=== PATIENT | female | born 1955 | race African-American/Black ===

== ENCOUNTER → 2017-07-24 14:12 | Outpatient (CLI) | payer OTHER, SELFPAY ==
[2017-07-24 14:44] LABS: Color, Urine Yellow (Yellow); Glucose, Dipstick Normal (Normal); Ketone-Dipstick Negative (Negative); Leukocyte Esterase-Dipstick 500 /ul (Negative); Mucous, Urine 0 SEEN /hpf (<or=2+); Nitrite-Dipstick Negative (Negative); Occult Blood-Urine 250 /ul (Negative); Protein-Dipstick 100 mg/dl (Negative); Specific Gravity, Urine 1.015 (1.002-1.030); Urine Bilirubin Dipstick Negative (Negative); Urine Clarity Sl. Cloudy (Clear); Urine Urobilinogen Normal (Normal)
[2017-07-24 14:51] LABS: Bacteria 1+ /hpf (None Seen); Red Blood Cells-Urine 25-50 SEEN /hpf (0-5); Squamous Epithelial Cells - UA 0-5 SEEN /hpf (5-10); White Blood Cells 25-50 SEEN /hpf (0-5)
== END ==
PROVIDERS: Family Provider Internal Medicine; PCP Internal Medicine; Visit Provider Internal Medicine
DX: N39.0 Urinary tract infection, site not specified (principal)
CPT/HCPCS: 81001

== ENCOUNTER 2017-08-01 16:26 | Emergency (ER) | payer OTHER, SELFPAY ==
[2017-08-01 16:27] VITALS: BP 162/81; PULSE 94; RESP 22; TEMP 36.6; O2SAT 94; BMI 32.7
--- NOTE | 2017-08-01 16:37 | CT_ITS ---
STUDY: CT ABDOMEN AND PELVIS WITH CONTRAST REASON FOR EXAM: Female, 62 years old. Abdominal pain RADIATION DOSAGE (If Supplied By Facility): CTDIvol = ( 12.21 ) mGy, DLP = ( 558.19 ) mGycm TECHNIQUE: Transaxial images were obtained from the dome of the diaphragm to the symphysis pubis without oral contrast. 15 ml of Gastrografin contrast was administered. Sagittal and coronal images were reconstructed. Individualized dose optimization techniques were used for this CT. COMPARISON: September 26, 2012 FINDINGS: The visualized lung bases are unremarkable. The visualized portions of the heart are within normal limits. Within segment 6 of the liver there is a persistent well-circumscribed low-attenuation focus that has not significantly changed since 2012. There are gallstones within the gallbladder. Normal spleen. Normal pancreas. There is stable symmetric enlargement of the adrenal glands suggesting adrenal hyperplasia. There is right-sided hydroureteronephrosis secondary to a 3.7 mm calculus within the distal right ureter. There is an additional nonobstructing right renal calculus. Normal left kidney. There is a small hiatal hernia. Normal small intestine. Normal colon. The appendix is visualized and appears normal. Normal abdominal aorta. Normal inferior vena cava. Normal retroperitoneum. Normal urinary bladder. Normal abdominal wall. Normal osseous structures. CT/Abdomen/Pel W ORAL Cont Only IMPRESSION: Right-sided hydroureteronephrosis secondary to a 3.7 mm calculus within the distal right ureter. Nonobstructing right renal calculus. Cholelithiasis. Small hiatal hernia. Electronically Signed: Trina Love MD at 20:07 EST Tel , Service support ,
--- NOTE | 2017-08-01 16:38 | ED.VISSUMM ---
- ER Visit Summary Date of Service: 08/01/17 Chief Complaint: Abdominal pain History of Present Illness: The patient is a 62 F presenting with diffuse abdominal pain that started yesterday morning. It is diffuse and she feels somewhat bloated. She is nauseated but has not vomited. Bowel movements have been normal. No fever. No chest pain or shortness of breath. No flulike symptoms. The pain was somewhat worse after she ate this afternoon. It does not radiate into her back and she has no flank pain. Physical Examination: Vitals are within normal limits. She is not in distress. Neck is supple. Heart tones are regular without murmur. Lungs are clear bilaterally. Abdomen is nontender and without peritoneal findings. Bowel sounds are normal. Skin looks normal. Test Results: CBC, BMP, hepatic panel, lipase as well as urinalysis were ordered. Care is being turned over to the oncoming physician. Emergency Department Course and Treatment: [] Treatment Plan: [] Disposition: [] Impression: [] This note was generated with [employer] dictation software. It may contain incorrect words, spelling, and punctuation that were not noted in review of the chart prior to signing <Hany Beth - Last Filed: 08/01/17 16:38> - ER Visit Summary She was signed out to me to follow-up on results. Patient had been treated with morphine and Zofran. Laboratory studies notable for white blood cell count 3.9 and blood in the urine. CT of the abdomen and pelvis shows right hydronephrosis with a 3.7 mm distal right ureteral calculus. On reevaluation patient rates her pain as 8 out of 10 however she is resting comfortably in no distress and states this is actually tolerable level of pain for her and she does not believe she needs admitted and would like to go home. She does have a history of kidney stones. She was given a prescription for Percocet and Flomax and referred to urology. She understands to return for new or worsening symptoms. Disposition: Discharge Impression: 1. Ureterolithiasis <Ivan Calderon - Last Filed: 08/01/17 20:31> ED Disposition <Hany Beth - Last Filed: 08/01/17 16:38> <Ivan Calderon - Last Filed: 08/01/17 20:31> - Plan for ED Patient: Chief Complaint: Abd Pain Referrals: Aarti Huang MD [Primary Care Provider] -
[2017-08-01] MEDS: 0.9% Normal Saline 1,000 ML 1000 ML IV (16:48)
[2017-08-01] MEDS: Ondansetron 4 MG/2 ML Vial IV (16:49)
[2017-08-01 16:59] LABS: Absolute Lymphocyte Count 1.81 X10^3/ul (0.83-4.51); Absolute Neutrophil Count 1.8 X10^3/uL (2.0-7.7); Basophil# 0.02 X10^3/uL; Basophil% 0.5 % (0-1); Eosinophil# 0.09 X10^3/uL; Eosinophils% 2.3 % (0-5); Hematocrit 41.5 % (37-47); Hemoglobin 13.5 g/dl (12.0-15.0); Lymphocyte # 1.81 X10^3/ul (4.0); Lymphocyte % 46.2 % (19-41); Mean Corp Hgb Conc 32.5 g/gl (32-36); Mean Corpuscular Hgb 30.6 pg (27.0-32.0); Mean Corpuscular Volume 94.1 fL (81-99); Mean Platelet Vol. 9.8 fl (6.2-12.0); Monocyte# 0.23 X10^3/uL; Monocyte% 5.9 % (0-10); Neutrophil # 1.77 X10^3/uL (2.7-7.7); Neutrophil % 45.1 % (47-70); Platelet Count 249 K/mm3 (150-450); RBC Distribution Width CV 13.9 % (11.6-14.6); RBC Distribution Width SD 47.5 fl (35.1-43.9); Red Blood Count 4.41 M/mm3 (4.2-5.4); White Blood Count 3.9 K/mm3 (4.4-11.0)
[2017-08-01 17:00] LABS: POSITIVE COUNT NO; POSITIVE DIFFERENTIAL NO; POSITIVE MORPHOLOGY NO
[2017-08-01 17:30] LABS: AST(SGOT) 16 U/L (15-37); Alanine Aminotransfer ALT/SGPT 24 U/L (13-56); Albumin, Serum 3.9 g/dL (3.2-5.0); Alkaline Phosphatase 73 U/L (45-117); Anion Gap 8 (5-15); BUN 14 mg/dL (7-18); BUN/Creat Ratio 15.2 RATIO (10-20); Bilirubin, Direct 0.15 mg/dL (0.00-0.30); Chloride 110 mmol/L (98-107); Creatinine, Serum 0.92 mg/dL (0.55-1.02); EST Glomerular Filtration Rate 65 mL/min (>60); Est Glom Filt Rate - Afr Amer 79 mL/min (>60); Estimated Creatinine Clearance 46.62 ml/min; Globulin 4.5 g/dL (2.2-4.2); Glucose 109 mg/dL (74-106); Lipase 185 U/L (73-393); Protein, Total 8.4 g/dL (6.4-8.2); Sodium Level 145 mmol/L (136-145)
[2017-08-01 17:43] LABS: Bacteria 0 SEEN /hpf (None Seen); Mucous, Urine 0 SEEN /hpf (<or=2+); White Blood Cells 0 SEEN /hpf (0-5)
[2017-08-01 17:45] LABS: Color, Urine Yellow (Yellow); Glucose, Dipstick Normal (Normal); Ketone-Dipstick Negative (Negative); Leukocyte Esterase-Dipstick Negative /ul (Negative); Nitrite-Dipstick Negative (Negative); Occult Blood-Urine 50 /ul (Negative); Protein-Dipstick Negative (Negative); Specific Gravity, Urine 1.015 (1.002-1.030); Urine Bilirubin Dipstick Negative (Negative); Urine Clarity Sl. Cloudy (Clear); Urine Urobilinogen Normal (Normal)
[2017-08-01 17:53] LABS: Amorphous Sediment 1+ PHOS; Red Blood Cells-Urine 0-5 SEEN /hpf (0-5); Squamous Epithelial Cells - UA 0-5 SEEN /hpf (5-10)
[2017-08-01 19:03] VITALS: BP 119/73; PULSE 70; O2SAT 98
--- NOTE | 2017-08-01 20:31 | ED.DEP ---
ED Disposition - Plan for ED Patient: Chief Complaint: Abd Pain Instructions: ED Stone Renal W Colic Prescriptions: Oxycodone HCl/Acetaminophen [Percocet 5/325] 1 tab PO Q6H PRN PRN 3 Days #12 tab PRN Reason: Pain Tamsulosin HCl [Flomax] 0.4 mg PO DAILY 14 Days cap Referrals: Aarti Huang MD [Primary Care Provider] - Leo Roper MD [STAFF PHYSICIAN] -
[2017-08-01 20:50] VITALS: PULSE 89; RESP 16; O2SAT 96
== END 2017-08-01 20:51 | disposition home or self-care (01) ==
PROVIDERS: Emergency Provider Emergency Medicine; Family Provider Internal Medicine; PCP Internal Medicine
DX: N20.1 Calculus of ureter (principal); I10 Essential (primary) hypertension; N13.30 Unspecified hydronephrosis; Z87.442 Personal history of urinary calculi
CPT/HCPCS: 74176; 80048; 80076; 81001; 83690; 85025; 87086; 87088; 99282; J7030; A4216; J2405

== ENCOUNTER → 2017-08-03 14:04 | Outpatient (CLI) | payer OTHER, SELFPAY ==
[2017-08-03 10:20] VITALS: BP 119/73; BMI 32.7
--- NOTE | 2017-08-03 14:30 | US_ITS ---
STUDY: ABDOMINAL ULTRASOUND - RIGHT UPPER QUADRANT REASON FOR VISIT: Female, 62 years old. Right upper quadrant pain. TECHNIQUE: Ultrasound evaluation of the right upper quadrant was performed with real-time and static maxwell-scale imaging. TECHNICAL QUALITY: Adequate. COMPARISON: Comparison is made with prior CT scan of the abdomen dated August 01, 2017. FINDINGS: Liver: The liver measures 12.2 cm. There is normal echogenicity of the liver. The bile ducts are within normal limits. There is hepatic color flow. The direction of portal flow is hepatopetal. There is a 1.2 cm x 1.2 cm x 1.2 cm cyst in the posterior right lobe of the liver. Gallbladder: Normal distended gallbladder. The gallbladder wall measures 3.0 mm. There is a negative sonographic Rodriguez's sign. There is no pericholecystic fluid. There are multiple echogenic structures within the gallbladder, consistent with multiple gallstones. Common Bile Duct (C.B.D.): The common bile duct measures 3.0 mm. Pancreas: Normal size of the head, body and tail of the pancreas. There is normal echogenicity of the pancreas. There is no demonstrated pancreatic mass or cyst. Right Kidney: Normal size of the right kidney. The right kidney measures 10.3 cm x 4.7 cm x 3.9 cm. Normal renal cortex. The right cortex measures 1.1 cm. There is no demonstrated renal mass or cyst. There is no right hydronephrosis. There is a 5 mm x 5 mm nonobstructive right intrarenal calculus. US/Abdomen Limited IMPRESSION: Multiple gallstones. Nonobstructive right intrarenal calculus. Small cyst in the right lobe of the liver. Electronically Signed: Harry Juárez MD at 15:50 EST Tel [phone], Service support ,
== END ==
PROVIDERS: Family Provider Internal Medicine; PCP Internal Medicine; Visit Provider Internal Medicine
DX: R10.11 Right upper quadrant pain (principal)
CPT/HCPCS: 76705

== ENCOUNTER → 2017-09-22 20:01 | Outpatient (CLI) | payer OTHER, SELFPAY | PROVIDERS: Family Provider Internal Medicine; PCP Internal Medicine; Visit Provider Internal Medicine | DX: G47.30 Sleep apnea, unspecified (principal); R06.83 Snoring; Z13.89 Encounter for screening for other disorder | CPT/HCPCS: 95811 ==

== ENCOUNTER 2018-01-28 14:25 | Emergency (ER) | payer MEDICARE, OTHER, SELFPAY ==
[2018-01-28 14:26] VITALS: BP 137/82; PULSE 80; RESP 18; TEMP 36.8; O2SAT 99; BMI 31.0
--- NOTE | 2018-01-28 14:44 | RAD_ITS ---
STUDY: X-RAY CHEST REASON FOR EXAM: Female, 62 years old. Left-sided chest pain. TECHNIQUE: Single AP portable view of the chest. COMPARISON: None. FINDINGS: The lungs are clear and expanded. There is no demonstrated pleural abnormality. Normal size heart. Normal mediastinum and chery. Normal visualized pulmonary arteries. There is atherosclerotic tortuosity of the aortic arch and descending thoracic aorta. Normal visualized thoracic spine. Normal visualized ribs, clavicles, and shoulders. There is no demonstrated abnormality of the visualized soft tissue structures of the upper abdomen. RAD/Chest 1 View (Portable) IMPRESSION: Normal x-ray examination of the chest. Electronically Signed: Harry Juárez MD at 15:05 EDT Tel [phone], Service support ,
--- NOTE | 2018-01-28 14:44 | EKG12_ITS ---
Test Reason : CP Blood Pressure : / mmHG Vent. Rate : 079 BPM Atrial Rate : 079 BPM P-R Int : 168 ms QRS Dur : 096 ms QT Int : 376 ms P-R-T Axes : 058 -29 052 degrees QTc Int : 431 ms Normal sinus rhythm Normal ECG Confirmed by JACQUELIN WEBB, TAMIA ([id number]), editor book BIANKA HARRELL ([id number]) on 02/01/2018 2:00:03 PM Referred By: MARYAM Confirmed By:TAMIA ROPER MD
--- NOTE | 2018-01-28 14:47 | ED.DCSUM_ITS ---
- ER Visit Summary Date of Service: 01/28/18 Chief Complaint: Chest pain History of Present Illness: The patient is a 62 F reports a 3 day history of intermittent left lower chest pain. She believes she might be having some gas bubbles causing pain. She states that initially was in the right upper quadrant but is now under the left breast. It is more noticeable at rest and she describes intermittent spasms. She states it would initially improve with antacids. She has not noted worsening of symptoms with exertion. She does not have shortness of breath. She does have a history of hypertension and high cholesterol. She denies personal cardiac history or significant cardiac workup in the past. She denies family history of cardiac disease. Physical Examination: Vital signs are unremarkable. Patient sitting upright in bed no acute distress. Heart is regular rate and rhythm. Lung sounds are clear. Abdomen is soft with mild epigastric tenderness. There is no guarding or rebound. Active bowel sounds noted throughout. Extremity examination was no calf tenderness or edema. There are strong distal pulses noted throughout. Test Results: EKG is sinus at 79 with no sign of acute ischemia. Chest x-ray is unremarkable. CBC was a white count 3.4. Chemistry studies normal. LFTs and lipase normal. Troponin is less than 0.015. Emergency Department Course and Treatment: Patient did receive aspirin here. On repeat evaluation she is resting comfortably. Symptoms certainly sound atypical for cardiac etiology to been ongoing for several days with normal EKG and troponin. I have recommended follow-up with her doctor for potential outpatient testing and patient states she has an appointment with her doctor tomorrow. Patient will be started on Pepcid to see if this improves her symptoms. Treatment Plan: [] Disposition: Discharge Impression: Atypical chest pain This note was generated with [employer] dictation software. It may contain incorrect words, spelling, and punctuation that were not noted in review of the chart prior to signing ED Disposition - Plan for ED Patient: Disposition: Home or Assisted Living Chief Complaint: Chest Pain Instructions: ED Chest Pain Atypical Unkn Cause Prescriptions: Famotidine [Pepcid] 20 mg PO BID #28 tablet Referrals: Aarti Huang MD [Primary Care Provider] - Keep Rikki appointment
[2018-01-28] MEDS: Aspirin 81 MG TAB.CHEW 324 MG PO (15:10)
[2018-01-28] MEDS: 0.9% Normal Saline 1,000 ML 150 ML IV (15:10)
[2018-01-28 15:28] LABS: Absolute Lymphocyte Count 1.75 X10^3/ul (0.83-4.51); Absolute Neutrophil Count 1.3 X10^3/uL (2.0-7.7); Basophil# 0.03 X10^3/uL; Basophil% 0.9 % (0-1); Eosinophil# 0.07 X10^3/uL; Eosinophils% 2.1 % (0-5); Hematocrit 40.1 % (37-47); Hemoglobin 13.1 g/dl (12.0-15.0); Lymphocyte # 1.75 X10^3/ul (4.0); Lymphocyte % 51.6 % (19-41); Mean Corp Hgb Conc 32.7 g/gl (32-36); Mean Corpuscular Hgb 30.8 pg (27.0-32.0); Mean Corpuscular Volume 94.1 fL (81-99); Mean Platelet Vol. 9.8 fl (6.2-12.0); Monocyte% 5.9 % (0-10); Neutrophil # 1.34 X10^3/uL (2.7-7.7); Neutrophil % 39.5 % (47-70); POSITIVE COUNT NO; POSITIVE DIFFERENTIAL NO; Platelet Count 252 K/mm3 (150-450); RBC Distribution Width CV 13.3 % (11.6-14.6); RBC Distribution Width SD 44.5 fl (35.1-43.9); Red Blood Count 4.26 M/mm3 (4.2-5.4); White Blood Count 3.4 K/mm3 (4.4-11.0)
[2018-01-28 15:29] LABS: POSITIVE MORPHOLOGY NO
[2018-01-28 15:41] VITALS: PULSE 69; RESP 17; O2SAT 98
[2018-01-28 15:42] LABS: AST(SGOT) 20 U/L (15-37); Alanine Aminotransfer ALT/SGPT 22 U/L (13-56); Albumin, Serum 3.7 g/dL (3.2-5.0); Alkaline Phosphatase 68 U/L (45-117); Anion Gap 7 (5-15); BUN 11 mg/dL (7-18); BUN/Creat Ratio 13.6 RATIO (10-20); Bilirubin, Direct 0.12 mg/dL (0.00-0.30); Calcium,Total 8.8 mg/dL (8.5-10.1); Chloride 106 mmol/L (98-107); Creatinine, Serum 0.81 mg/dL (0.55-1.02); EST Glomerular Filtration Rate 76 mL/min (>60); Est Glom Filt Rate - Afr Amer 92 mL/min (>60); Estimated Creatinine Clearance 55.49 ml/min; Globulin 4.5 g/dL (2.2-4.2); Glucose 90 mg/dL (74-106); Lipase 118 U/L (73-393); Potassium 3.9 mmol/L (3.5-5.1); Protein, Total 8.2 g/dL (6.4-8.2); Sodium Level 140 mmol/L (136-145)
--- NOTE | 2018-01-28 16:07 | ED.DEP ---
ED Disposition - Plan for ED Patient: Disposition: Home or Assisted Living Chief Complaint: Chest Pain Instructions: ED Chest Pain Atypical Unkn Cause Prescriptions: Famotidine [Pepcid] 20 mg PO BID #28 tablet Referrals: Aarti Huang MD [Primary Care Provider] - Keep Rikki appointment
[2018-01-28 16:31] VITALS: PULSE 65; RESP 19; O2SAT 97
== END 2018-01-28 16:32 | disposition home or self-care (01) ==
PROVIDERS: Emergency Provider Emergency Medicine; Family Provider Internal Medicine; PCP Internal Medicine
DX: R07.89 Other chest pain (principal); I10 Essential (primary) hypertension; E78.00 Pure hypercholesterolemia, unspecified; Z87.891 Personal history of nicotine dependence
CPT/HCPCS: 71045; 80048; 80076; 83690; 84484; 85025; 93005; 99285; J7030

== ENCOUNTER → 2018-01-29 11:58 | Outpatient (CLI) | payer MEDICARE, OTHER, SELFPAY ==
[2018-01-29 14:32] LABS: Cholesterol 156 mg/dL (200); High Density Lipoprotein 69 mg/dL; Triglycerides 52 mg/dL; Very Low Density Lipoprotein 10 mg/dL (5-40)
== END ==
PROVIDERS: Family Provider Internal Medicine; PCP Internal Medicine; Visit Provider Internal Medicine
DX: E78.5 Hyperlipidemia, unspecified (principal)
CPT/HCPCS: 36415; 80061

== ENCOUNTER → 2018-08-03 14:11 | Outpatient (CLI) | payer MEDICARE, SELFPAY ==
[2018-08-03 13:08] VITALS: BMI 33.0
[2018-08-03 15:51] LABS: Anion Gap 8 (5-15); BUN 14 mg/dL (7-18); BUN/Creat Ratio 16.9 RATIO (10-20); Calcium,Total 8.9 mg/dL (8.5-10.1); Chloride 108 mmol/L (98-107); Creatinine, Serum 0.83 mg/dL (0.55-1.02); EST Glomerular Filtration Rate 74 mL/min (>60); Est Glom Filt Rate - Afr Amer 89 mL/min (>60); Glucose 97 mg/dL (74-106); Potassium 3.6 mmol/L (3.5-5.1); Sodium Level 144 mmol/L (136-145)
== END ==
PROVIDERS: Family Provider Internal Medicine; PCP Internal Medicine; Referring Provider Internal Medicine; Visit Provider Internal Medicine
DX: I10 Essential (primary) hypertension (principal)
CPT/HCPCS: 36415; 80048

== ENCOUNTER 2019-01-16 12:32 | Emergency (ER) | payer MEDICARE, OTHER, SELFPAY ==
[2018-11-02 14:30] VITALS: BMI 33.0
[2019-01-16 12:33] VITALS: BP 113/75; PULSE 78; RESP 16; TEMP 36.3; O2SAT 97; BMI 31.7
--- NOTE | 2019-01-16 12:50 | CT_ITS ---
STUDY: CT ABDOMEN AND PELVIS WITHOUT CONTRAST REASON FOR EXAM: Female, 63 years old. Right-sided abdominal pain RADIATION DOSAGE (If Supplied By Facility): CTDIvol = ( 9.34 ) mGy, DLP = ( 431.51 ) mGycm TECHNIQUE: Transaxial images were obtained from the dome of the diaphragm to the symphysis pubis without oral contrast, and without intravenous contrast. Sagittal and coronal images were reconstructed. Individualized dose optimization techniques were used for this CT. COMPARISON: 08/01/2017 FINDINGS: The visualized lung bases are unremarkable. The visualized portions of the heart are within normal limits. There is a simple cyst in the posterior right hepatic lobe. There are multiple gallstones. Normal spleen. Normal pancreas. Normal bilateral adrenal glands. Nonobstructing punctate calculus in the inferior right kidney is seen on image 63 measuring 3 mm. No hydronephrosis. There is a small hiatal hernia. Normal small intestine. Moderate fecal retention of the proximal colon. No colon wall thickening. The appendix is visualized and appears normal. Normal abdominal aorta. Normal inferior vena cava. Normal retroperitoneum. Normal urinary bladder. Normal abdominal wall. Normal osseous structures. CT/Abdomen/Pelvis without Cont IMPRESSION: 1. No hydronephrosis or ureteric calculi. 2. Nonobstructing right renal calculus. 3. Cholelithiasis. Electronically Signed: Osvaldo Carter MD at 14:52 EDT , Service support ,
--- NOTE | 2019-01-16 12:51 | ED.VIS.GEN ---
History of Present Illness Chief Complaint: Flank Pain Detail of Chief Complaint: Right flank pain Informant: Patient Onset: Yesterday Context: Gradual Onset Timing: Waxes and wanes Current Severity: Moderate Maximum Severity: Moderate Narrative: Patient presents with right flank pain that started yesterday. After the pain started she also slipped while cleaning the shower and thought maybe she was having some muscle spasm. She does have a history of kidney stones and is now more concerned that she has another stone. Pain wraps around the lower right rib border. She denies dysuria but states her urine does appear slightly more dark than normal. She has had multiple kidney stones in the past and was been able to pass them without surgery. - Past Medical History (1) Hyperlipemia Status: Chronic (2) Hypertension Status: Chronic (3) Kidney stones Status: Chronic (4) Sleep apnea Status: Chronic Past Medical History - Allergies and Home Meds Allergies/Adverse Reactions: Allergies lactose Adverse Reaction (Verified 01/16/19 12:33) Nausea/Vom/Diarrhea Primary Care Physician: Aarti Huang MD [Primary Care Provider] - Prior records reviewed: Yes Past Medical History: - - Reviewed Lives: With Family Smoking Status: Former smoker Review of Systems General: Denies: Chills, Fever Eyes: Denies: Visual changes - bilaterally ENT: Denies: Bilateral ear pain Cardiovascular: Denies: Chest pain, Palpitations Respiratory: Denies: Dyspnea, Cough Gastrointestinal: Reports: Abdominal pain - Right upper quadrant. Denies: Nausea, Vomiting Genitourinary: Denies: Dysuria, Hematuria, Frequency Musculoskeletal: Reports: Back pain - Right flank pain Skin: Denies: Rash Endocrine: Denies: Polyuria, Polydipsia Hematologic: Denies: Easy bleeding Allergy: Denies: Uticaria Physical Exam Vital Signs/Narrative: Vital Signs Temp Pulse Resp BP Pulse Ox 01/16/19 12:33 97.3 F L 78 16 113/75 97 Inital Vital Signs reviewed: Yes General: Well nourished, Well developed Head: Normocephalic Eyes: EOMI ENT: Moist mucous membranes Cardiovascular: Regular rate, Regular rhythm Respiratory: No distress, CTA bilaterally Abdomen: Soft, Tender - Right upper quadrant tenderness to palpation. Negative for: Guarding, Rebound tenderness Back: CVA tenderness - CVA tenderness Extremities: Nontender Skin: Normal color Neurological: Alert, Oriented x3 Psychological: Normal affect Diagnostic/Tx/Re-eval Impressions Abdomen/Pelvis CT 01/16/19 12:50 IMPRESSION: 1. No hydronephrosis or ureteric calculi. 2. Nonobstructing right renal calculus. 3. Cholelithiasis. Electronically Signed: Osvaldo Carter MD at 14:52 EDT , Service support , 01/16/19 12:50 Abdomen/Pelvis without Cont [CT] Stat Laboratory Results 01/16/19 01/16/19 01/16/19 12:55 12:55 15:00 WBC 3.7 L RBC 4.11 L Hgb 12.7 Hct 38.3 MCV 93.2 MCH 30.9 MCHC 33.2 RDW Std Deviation 45.5 H RDW Coeff of Samy 13.4 Plt Count 219 MPV 10.0 Immature Gran % (Auto) 0.000 Neut % (Auto) 44.2 L Lymph % (Auto) 43.4 H [place] % (Auto) 9.7 Eos % (Auto) 1.6 Baso % (Auto) 1.1 H Absolute Neuts (auto) 1.6 L Absolute Lymphs (auto) 1.61 Absolute Nucleated RBC 0.00 Nucleated RBC % 0 Sodium 139 Potassium 4.2 Chloride 110 H Carbon Dioxide 27.0 Anion Gap 2 L BUN 14 Creatinine 0.85 Estim Creat Clear Calc 52.19 Est GFR (MDRD) Af Amer 86 Est GFR (MDRD) Non-Af 71 BUN/Creatinine Ratio 16.4 Glucose 94 Calcium 8.9 Total Bilirubin 0.40 Direct Bilirubin 0.08 AST 22 ALT 20 Alkaline Phosphatase 64 Total Protein 7.6 Albumin 3.5 Globulin 4.1 Lipase 83 Urine Color Straw Urine Clarity Clear Urine pH 6.5 Ur Specific [place] 1.010 Urine Protein Negative Urine Glucose (UA) Normal Urine Ketones Negative Urine Occult Blood Negative Urine Nitrite Negative Urine Bilirubin Negative Urine Urobilinogen Normal Ur Leukocyte Esterase Negative Urine RBC 0 SEEN Urine WBC 0 SEEN Ur Squamous Epith Cells 0-5 SEEN Urine Bacteria 0 SEEN Urine Mucus 0 SEEN - Medical Decision Making Patient was given morphine, Zofran, and 15 mg of Toradol along with IV fluids. On repeat evaluation she is resting comfortably and states her pain is significantly improved. Test results are discussed with her. I did advise her that she has gallstones, but no signs of acute cholecystitis. She did slip and nearly fall straining her back a few days ago and this may be the cause of her current symptoms. She will use Tylenol or ibuprofen at home for pain. I will write her for a few [place] for breakthrough pain if needed. She is to return for worsening symptoms or concerns. ED Disposition - Plan for ED Patient: Disposition: Home or Assisted Living Diagnosis: Right flank pain Instructions: FLANK PAIN, Uncertain Cause Prescriptions: Hydrocodone Bitart/Apap 5-325 [[place] 5MG-325MG] 1 tablet PO Q6H PRN PRN 3 Days #10 tablet PRN Reason: Pain Referrals: Aarti Huang MD [Primary Care Provider] - 1 Week if not improving
[2019-01-16] MEDS: Morphine 4 MG/ML Syringe IV (13:03)
[2019-01-16] MEDS: 0.9% Normal Saline 1,000 ML 150 ML IV (13:03)
[2019-01-16] MEDS: Ketorolac 15 MG/ML Vial IV (13:03)
[2019-01-16] MEDS: Ondansetron 4 MG/2 ML Vial IV (13:03)
[2019-01-16 13:19] LABS: Absolute Lymphocyte Count 1.61 X10^3/uL (0.83-4.51); Absolute Neutrophil Count 1.6 X10^3/uL (2.0-7.7); Basophil# 0.04 X10^3/uL; Basophil% 1.1 % (0-1); Eosinophil# 0.06 X10^3/uL; Eosinophils% 1.6 % (0-5); Hematocrit 38.3 % (37-47); Hemoglobin 12.7 g/dL (12.0-15.0); Lymphocyte # 1.61 X10^3/ul (4.0); Lymphocyte % 43.4 % (19-41); Mean Corp Hgb Conc 33.2 g/dL (32-36); Mean Corpuscular Hgb 30.9 pg (27.0-32.0); Mean Corpuscular Volume 93.2 fL (81-99); Monocyte# 0.36 X10^3/uL; Monocyte% 9.7 % (0-10); NRBC Flagged by Analyzer 0 % (0-5); Neutrophil # 1.64 X10^3/uL (2.7-7.7); Neutrophil % 44.2 % (47-70); Platelet Count 219 K/mm3 (150-450); RBC Distribution Width CV 13.4 % (11.6-14.6); RBC Distribution Width SD 45.5 fl (35.1-43.9); Red Blood Count 4.11 M/mm3 (4.2-5.4); White Blood Count 3.7 K/mm3 (4.4-11.0)
[2019-01-16 13:34] LABS: AST(SGOT) 22 U/L (15-37); Alanine Aminotransfer ALT/SGPT 20 U/L (13-56); Albumin, Serum 3.5 g/dL (3.2-5.0); Alkaline Phosphatase 64 U/L (45-117); Anion Gap 2 (5-15); BUN 14 mg/dL (7-18); BUN/Creat Ratio 16.4 RATIO (10-20); Bilirubin, Direct 0.08 mg/dL (0.00-0.30); Calcium,Total 8.9 mg/dL (8.5-10.1); Chloride 110 mmol/L (98-107); Creatinine, Serum 0.85 mg/dL (0.55-1.02); EST Glomerular Filtration Rate 71 mL/min (>60); Est Glom Filt Rate - Afr Amer 86 mL/min (>60); Estimated Creatinine Clearance 52.19 ml/min; Globulin 4.1 g/dL (2.2-4.2); Glucose 94 mg/dL (74-106); Lipase 83 U/L (73-393); Potassium 4.2 mmol/L (3.5-5.1); Protein, Total 7.6 g/dL (6.4-8.2); Sodium Level 139 mmol/L (136-145)
[2019-01-16 15:05] VITALS: BP 114/66; PULSE 66; RESP 17; O2SAT 96
[2019-01-16 15:09] LABS: Bacteria 0 SEEN /hpf (None Seen); Mucous, Urine 0 SEEN /hpf (<or=2+); Red Blood Cells-Urine 0 SEEN /hpf (0-5); White Blood Cells 0 SEEN /hpf (0-5)
[2019-01-16 15:27] LABS: Color, Urine Straw (Yellow); Glucose, Dipstick Normal (Normal); Ketone-Dipstick Negative (Negative); Leukocyte Esterase-Dipstick Negative /ul (Negative); Nitrite-Dipstick Negative (Negative); Occult Blood-Urine Negative /ul (Negative); Protein-Dipstick Negative (Negative); Urine Bilirubin Dipstick Negative (Negative); Urine Clarity Clear (Clear); Urine Urobilinogen Normal (Normal); Urine pH 6.5 (5.0 - 8.0)
[2019-01-16 15:48] LABS: Squamous Epithelial Cells - UA 0-5 SEEN /hpf (5-10)
== END 2019-01-16 15:58 | disposition home or self-care (01) ==
PROVIDERS: Emergency Provider Emergency Medicine; Family Provider Internal Medicine; PCP Internal Medicine
DX: R10.9 Unspecified abdominal pain (principal); K80.20 Calculus of gallbladder without cholecystitis without obstruction; N20.0 Calculus of kidney; Z87.891 Personal history of nicotine dependence; I10 Essential (primary) hypertension; E78.5 Hyperlipidemia, unspecified; G47.30 Sleep apnea, unspecified; Z87.442 Personal history of urinary calculi
CPT/HCPCS: 74176; 80048; 80076; 81001; 83690; 85025; 96361; 96374; 96375; 99284; J7030; A4216; J2405

== ENCOUNTER → 2019-02-15 11:57 | Outpatient (CLI) | payer MEDICARE, OTHER, SELFPAY ==
[2019-02-15 11:30] VITALS: BMI 32.0
[2019-02-15 13:00] LABS: Cholesterol 148 mg/dL (200); High Density Lipoprotein 72 mg/dL; Triglycerides 79 mg/dL; Very Low Density Lipoprotein 16 mg/dL (5-40)
== END ==
PROVIDERS: Family Provider Internal Medicine; PCP Internal Medicine; Visit Provider Internal Medicine
DX: E78.5 Hyperlipidemia, unspecified (principal); I10 Essential (primary) hypertension
CPT/HCPCS: 36415; 80061

== ENCOUNTER 2019-02-19 22:29 | Emergency (ER) | payer MEDICARE, OTHER, SELFPAY ==
[2019-02-15 11:30] VITALS: BMI 32.0
[2019-02-19 22:30] VITALS: BP 129/74; PULSE 99; RESP 16; TEMP 36.2; O2SAT 98; BMI 33.5
[2019-02-19 23:02] LABS: Bacteria 0 SEEN /hpf (None Seen); Mucous, Urine 0 SEEN /hpf (<or=2+)
[2019-02-19 23:03] LABS: Color, Urine Straw (Yellow); Glucose, Dipstick Normal (Normal); Ketone-Dipstick Negative (Negative); Leukocyte Esterase-Dipstick 500 /ul (Negative); Nitrite-Dipstick Negative (Negative); Occult Blood-Urine 250 /ul (Negative); Protein-Dipstick Negative (Negative); Specific Gravity, Urine 1.005 (1.002-1.030); Urine Bilirubin Dipstick Negative (Negative); Urine Clarity Clear (Clear); Urine Urobilinogen Normal (Normal)
[2019-02-19 23:09] LABS: Amorphous Sediment 1+ PHOS; Red Blood Cells-Urine 5-10 SEEN /hpf (0-5); Squamous Epithelial Cells - UA 0-5 SEEN /hpf (5-10); White Blood Cells 10-25 SEEN /hpf (0-5)
--- NOTE | 2019-02-19 23:15 | ED.DCSUM_ITS ---
- ER Visit Summary Date of Service: 02/19/19 Chief Complaint: Lower abdominal pain History of Present Illness: The patient is a 64 F who presents with lower abdominal pain and pressure that began yesterday. Patient states it feels like there is pressure over her lower abdomen. Patient admits to some urinary frequency and dysuria. Patient admits to some nausea but denies any vomiting. Patient states pain does radiate into her back. Patient states she had a CT scan done about a month ago that showed kidney stone. Patient is unsure if it was in the kidney or the ureter. Patient thinks she may have passed the stone. Patient denies any fevers or chills. Patient denies any chest pain or shortness of breath. Physical Examination: Vital signs are stable. Patient is afebrile. Patient is in no acute distress. Oral mucosa is pink and moist. Neck is supple. Trachea is midline. There is no JVD noted. Heart was regular rate and rhythm. Lungs are clear and equal bilaterally. Abdomen is soft. Bowel sounds are normal. There is some mild lower abdominal tenderness. There is no rebound or guarding noted. Cranial nerves II through XII are intact. There are no focal motor or sensory deficits noted. Test Results: Urinalysis shows leukocyte esterase of 500 with 10-25 white blood cells. There is occult blood of 250 with 5-10 red blood cells. CBC and basic metabolic profile were within normal limits. Emergency Department Course and Treatment: CT scan from 01/16/2019 was reviewed. There was a stone in the right kidney but there is no obstruction. Urine culture was sent. Patient was started on Bactrim. Patient was instructed to drink plenty of fluids. Patient was instructed to follow-up with her primary care physician in 5 to 7 days. Patient understood and was agreeable with the plan. All questions were answered. Disposition: Discharge home Impression: 1. Urinary tract infection This note was generated with [employer] dictation software. It may contain incorrect words, spelling, and punctuation that were not noted in review of the chart prior to signing ED Disposition - Plan for ED Patient: Disposition: Home or Assisted Living Diagnosis: Urinary tract infection Instructions: Bladder Infection, Female (Adult) Prescriptions: Smz/Tmp Ds [Bactrim Ds] 1 tab PO BID #6 tab Prescription Printed Referrals: Aarti Huang MD [Primary Care Provider] - 5-7 Days
[2019-02-19 23:34] LABS: Absolute Lymphocyte Count 1.89 X10^3/uL (0.83-4.51); Absolute Neutrophil Count 4.3 X10^3/uL (2.0-7.7); Basophil# 0.04 X10^3/uL; Basophil% 0.6 % (0-1); Eosinophils% 2.8 % (0-5); Hematocrit 38.4 % (37-47); Hemoglobin 12.5 g/dL (12.0-15.0); Lymphocyte # 1.89 X10^3/ul (4.0); Lymphocyte % 26.8 % (19-41); Mean Corp Hgb Conc 32.6 g/dL (32-36); Mean Corpuscular Hgb 30.3 pg (27.0-32.0); Mean Platelet Vol. 10.1 fl (6.2-12.0); Monocyte# 0.59 X10^3/uL; Monocyte% 8.4 % (0-10); NRBC Flagged by Analyzer 0 % (0-5); Neutrophil # 4.31 X10^3/uL (2.7-7.7); Neutrophil % 61.3 % (47-70); Platelet Count 212 K/mm3 (150-450); RBC Distribution Width CV 13.2 % (11.6-14.6); RBC Distribution Width SD 44.8 fl (35.1-43.9); Red Blood Count 4.13 M/mm3 (4.2-5.4)
[2019-02-19 23:44] LABS: Anion Gap 6 (5-15); BUN 7 mg/dL (7-18); BUN/Creat Ratio 8.7 RATIO (10-20); Chloride 108 mmol/L (98-107); EST Glomerular Filtration Rate 76 mL/min (>60); Est Glom Filt Rate - Afr Amer 92 mL/min (>60); Glucose 110 mg/dL (74-106); Potassium 3.8 mmol/L (3.5-5.1); Sodium Level 142 mmol/L (136-145)
[2019-02-20] MEDS: Smz/Tmp Ds Tablet 1 TABLET PO (00:30)
[2019-02-20 00:33] VITALS: RESP 16
== END 2019-02-20 00:33 | disposition home or self-care (01) ==
PROVIDERS: Emergency Medicine; Emergency Provider Emergency Medicine; Family Provider Internal Medicine; PCP Internal Medicine
DX: N39.0 Urinary tract infection, site not specified (principal); I10 Essential (primary) hypertension; E78.00 Pure hypercholesterolemia, unspecified; Z87.442 Personal history of urinary calculi
CPT/HCPCS: 80048; 81001; 85025; 87086; 87088; 87186; 99284; A4216

== ENCOUNTER → 2019-03-02 13:18 | Outpatient (CLI) | payer MEDICARE, OTHER, SELFPAY ==
[2019-02-19 22:30] VITALS: BMI 33.5
--- NOTE | 2019-03-02 13:22 | EKG12_ITS ---
Test Reason : HYPERTENSION Blood Pressure : / mmHG Vent. Rate : 076 BPM Atrial Rate : 076 BPM P-R Int : 178 ms QRS Dur : 092 ms QT Int : 368 ms P-R-T Axes : 062 -17 049 degrees QTc Int : 414 ms Normal sinus rhythm Normal ECG Confirmed by JULISA SAHU ([id number]), web content editor VIVIENNE NARAYANAN ([id number]) on 03/03/2019 1:47:36 PM Referred By: Aarti Huang Confirmed By:JULISA SAHU
== END ==
PROVIDERS: Family Provider Internal Medicine; PCP Internal Medicine; Referring Provider Internal Medicine; Visit Provider Internal Medicine
DX: I10 Essential (primary) hypertension (principal)
CPT/HCPCS: 93005

== ENCOUNTER 2019-03-15 05:45 | Day surgery (SDC) | payer MEDICARE, OTHER, SELFPAY ==
[2019-03-07 14:49] VITALS: BMI 33.5
[2019-03-15] VITALS (7 sets, daily range): BP systolic 97–113; BP diastolic 62–76; PULSE 59–82; RESP 16–18; TEMP 36.1–36.4; O2SAT 97–100; BMI 32.1
--- NOTE | 2019-03-15 06:06 | HP.PCM_ITS ---
Problem List (1) Screening for intestinal cancer Status: Acute History and Physical Date of Admission: 03/15/19 MR#:[id number] Name: JULIA MIMS Rep #: [id number] : 1955 Provider: Garry Chawla MD Age/Sex: 64/F Location: [facility] Status: Signed Intake Vital Signs 03/07/19 Body Mass Index (BMI) 33.5 03/07/19 Height 5 ft 1 in 03/07/19 Weight: 172 lb 03/07/19 Body Mass Index (BMI) 32.5 03/07/19 Blood Pressure 116/71 03/07/19 Blood Pressure Location Rt brachial 03/07/19 Respiratory Rate 16 Intake Visit Reasons: Gallstones CT [facility] 01/16/19 Chief Complaint: FU - Seen ER yesterday - 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 Is patient in pain?: No Allergies lactose Adverse Reaction (Verified 03/07/19 14:49) Nausea/Vom/Diarrhea Medications multivitamin capsule 1 cap PO DAILY 05/07/18 [History Confirmed 03/07/19] omega-3 fatty acids 1,000 mg capsule 1,000 mg PO QDAY #90 cap 07/14/18 [Rx Confirmed 03/07/19] rosuvastatin 20 mg tablet 20 mg PO DAILY #90 tab 07/14/18 [Rx Confirmed 03/07/19] ascorbate calcium (vitamin C) 500 mg tablet 500 mg PO DAILY 11/02/18 [History Confirmed 03/07/19] cholecalciferol (vitamin D3) 1,000 unit capsule 1,000 unit PO DAILY 11/02/18 [History Confirmed 03/07/19] amlodipine 10 mg-benazepril 40 mg capsule 1 cap PO QDAY #90 cap 11/08/18 [Rx Confirmed 03/07/19] hydrocodone 5 mg-acetaminophen 325 mg tablet 1 tab PO Q6H PRN 02/15/19 [History Confirmed 03/07/19] PFSH Medical History Sleep apnea (Chronic) Emphysema lung (Chronic) Plantar fasciitis (Acute) Kidney stones (Chronic) Hyperlipemia (Chronic) Hypertension (Chronic) Surgical History History of salpingectomy (Acute) History of laparoscopy (Acute) Family History Mother Asthma Arthritis Father Asthma Social History (Updated 03/07/19 @ 17:22 by Garry Chawla MD) Smoking Status: Never smoker how long ago did patient quit smokin, 1p/day second hand exposure: Yes alcohol intake: never what type of physical activity do you participate in: aerobics, weight training frequency: daily HPI HPI HPI: JULIA MIMS, is a 64 F who presents to the office today for HPI HPI Surgical H&P: Yes HPI: JULIA MIMS, is a 64 F who presents to the office today for surgical consultation regarding right upper quadrant pain and gallstones and kidney stones. The patient is referred by Dr. Aarti Huang and a written copy of my surgical consult will be returned to her. The patient is currently 64. She states that perhaps as long as 5 years ago she was diagnosed with gallstones. It was felt that they likely were asymptomatic at that time. The patient describes at that time she also had kidney stones. She has had some ongoing intermittent hematuria. A month ago she had right up per quadrant and right mid abdominal pain. She did have some streaky amount of blood in her's urine but that resolved. She was seen at the [facility] emergency room on January 16, 2019. A CT scan of the abdomen and pelvis was obtained. This demonstrated multiple gallstones seen. There was a nonobstructing calculus of the inferior right kidney. No hydronephrosis. A small hiatal hernia was noted. At that time it was suggested that her pain was more in the lower abdomen. She denies fever or chills. She claims that she occasionally has sweats. As of February 19, 2019 her white blood cell count was 7000 with a hemoglobin of 12.5 and hematocrit of 38.4 with a platelet count of 212,000 and a normal differential. BUN was 7 and creatinine 0.8. The patient has carried some anxiety regarding surgical intervention. Although her has had 3 colonoscopies she herself is never had a single colonoscopy. She is not aware of any family history in her blood line of colon polyps or colon cancer. Her father however had hypertension and asthma. She has not noticed any bright red blood per rectum or melena. She points to the right subcostal area right flank area and right mid abdomen is a source of the discomfort. She does state that this is increased with fatty food intake. ROS General General: Yes fatigue; no weight change, appetite, colon cancer, breast cancer or weakness HEENT HEENT: No difficulty swallowing, eye injury, eye surgery, swollen glands or hoarseness Endo Endocrine: No thyroid disease, diabetes mellitus, thyroid cancer, Hair loss, heat intolerance or cold intolerance Skin Skin: No rash or changing moles Breast Breast: No left breast lump, right breast lump, nipple discharge, breast pain, abnormal mammogram, abnormal US or breast enlargement Musc Musculoskeletal: No back problems, arthritis, rheumatoid arthritis, gout or joint pain Cardio Cardiovascular: Yes high blood pressure; no murmur, pacemaker, heart disease, atrial fibrillation, heart attack, heart stent, palpitations, shortness of breat with exertion or chest pain Psych Psychiatric: No depression, anxiety or hearing voices Resp Respiratory: No shortness of breath, Yes sleep apnea, No cough, No COPD, No asthma, Yes emphysema, No wheezing Gastro Gastrointestinal: Yes abdominal pain, Yes nausea or vomiting, No diarrhea, Yes constipation, No blood in stool, No acid reflux, No hemorrhoids, No ulcers, Yes gallbladder problem, No black,tarry stools Dashawn Hematologic: No blood thinners, No blood disorders, No bleeding, No anemia, No blood clots Neuro Neurologic: No system reviewed and no additional complaints, except as docu, No as per HPI, No abnormal walking, No abnormal hearing, No abnormal movements, No abnormal speech, No behavioral changes, No burning sensations, No confusion, No seizure-like activity, No unsteadiness, No dizziness, No localized weakness, No frequent falls, No headache(s), No lack of coordination, No loss of vision, No memory loss, No numbness, No other visual disturbances, No radiating pain, No restless legs, No sensory deficit, No fainting, No tingling, No tremor(s), No weakness, No other Exam Const General: cooperative, comfortable, no acute distress, anxious Nutritional Appearance: overweight Orientation: alert, awake, oriented x3 HENMT Head: normal to inspection Eyes General: appearance normal, both eyes and all related structures Chest Breast Palpation: No nipple discharge Resp Effort & Inspection: normal respiratory effort Auscultation: clear to auscultation bilaterally Cardio Rate: regular rate Rhythm: regular rhythm Heart Sounds: no murmurs GI Palpation: soft, no hepatosplenomegaly Auscultation: normal bowel sounds Other: Mild tenderness right upper quadrant but similar mild tenderness left upper quadrant. No focal masses. No rebound or guarding. Normal bowel sounds Hypertrophic infraumbilical midline incision related to previous gynecologic surgery for tubal pregnancies x2 Musc Cervical Spine: normal cervical lordosis Skin Lesions: no lesions Neuro Cognition: normal cognition Extrem General: no calf tenderness bilaterally Psych Affect: normal affect Assessment & Plan Problems 1. Calculus of gallbladder with chronic cholecystitis without obstruction K80.10 2. Screening for intestinal cancer Z12.10 Plan At age 64 the patient has never had a screening colonoscopy yet she is having abdominal pain. I recommend to her a screening colonoscopy with possible biopsy or polypectomy as indicated. She is aware of the technique, benefit, risks, alternatives. This would be performed with monitored anesthesia care. And additionally I recommended the patient a laparoscopic cholecystectomy with selective cholangiography. I believe that is very difficult to decipher the potential differences between her right flank pain with known kidney stones and known gallstones. She seems to have a GI component with post prandial discomfort. With her present I have discussed technique, benefit, risks, alternatives. She has a infraumbilical midline incision. Consideration for possible Ricks technique will be utilized. She has had an opportunity to ask and have questions answered. She will schedule and proceed at her discretion. I very much appreciate the kind opportunity of assisting with her surgical care CC: Dr.Efewongbe Reina Chawla M.D., F.A.C.S. Coding Level of Care Code 09119 Diagnoses Calculus of gallbladder with chronic cholecystitis without obstruction K80.10 ??Cholelithiasis location: gallbladder ??Biliary obstruction: without biliary obstruction Screening for intestinal cancer Z12.10 03/07/19 1722 <Electronically signed by Garry vizcarra MD> Date _ Garry Chawla MD Cosigner Signature: Date (if applicable) CC: Aarti Huang MD ~ I have re-examined the patient. There are no clinical changes since date of exam.
[2019-03-15] MEDS: Lactated Ringers 1,000 ML 75 ML IV (06:17)
--- NOTE | 2019-03-15 07:00 | COLBX_PTH ---
PATIENT: JULIA MIMS LOC: EN U#:[id number] AGE/SX: 64/F ROOM: RE03/15/[address]: Dr. Garry Chawla MD : 1955 BED: DIS: 03/15/2019 SPEC #: [id number] RECD: 03/15/19 10:50 STATUS: SHILOH AFSHAN #: [id number] VINCE: 03/15/19 07:[address]: Garry Chawla DEPT: SURGICAL PATHOLOGY RECD BY: Dariusz Wiggins ENTERED: 03/15/19 11:59 SP TYPE: COLON BX AMBROSIO DR: Dr. Aarti Huang MD Tissues: A - Sigmoid colon biopsy B - Rectum, NOS C - Sigmoid colon biopsy Procedures: Surgery Specimen Level IV HEADER OPERATION: Colonoscopy (MAC) PRE-OP DIAGNOSIS: Screening TISSUE SUBMITTED: A - Distal sigmoid polyp, B - Rectal polyp, C - Distal sigmoid polyp biopsy MICROSCOPIC DIAGNOSIS A. Distal sigmoid colon polyp, biopsy: Tubular adenoma. B. Rectal polyp, biopsy: Fragments of tubular adenoma. C. Distal sigmoid colon polyp, biopsy: Hyperplastic polyp. AM:abbie 03/16/19 COMMENT Case has been reviewed in consultation with Dr. Barbosa who concurs with the above diagnosis. IDC:DIAN MICROSCOPIC DESCRIPTION Slides are reviewed. GROSS DESCRIPTION A - Received in fixative is one container labeled with the patient's name and designated distal sigmoid polyp. The specimen consists of one irregular fragment of light noe soft tissue that measures 0.7 x 0.7 x 0.4 cm. The specimen is bisected and totally submitted in one cassette. B - Received in fixative is one container labeled with the patient's name and designated rectal polyp. The specimen consists of one irregular fragment of light noe soft tissue that measures 1 x 0.8 x 0.6 cm. The specimen is bisected and totally submitted in one cassette. C - Received in fixative is one container labeled with the patient's name and designated distal sigmoid polyp biopsy. The specimen consists of two irregular fragments of light noe soft tissue that in aggregate measure 0.3 x 0.3 x 0.1 cm. The specimen is totally submitted in one cassette. / DIAN:abbie 03/15/19 TC:5 CPT: 05763 x3
--- NOTE | 2019-03-15 23:35 | OP.ENDO_ITS ---
03/15/2019 Aarti Huang MD [address] [place] [address] [place] [address] Re : Colonoscopy procedure for Lex Zamora Dear Dr. Huang This procedure was performed on Friday, March 15, 2019. My impressions and recommendations are as follows: Impressions : - One 5 mm polyp in the distal sigmoid colon, removed with a cold biopsy forceps. Resected and retrieved. - One 10 mm polyp in the distal sigmoid colon, removed with a hot snare. Resected and retrieved. - One 10 mm polyp in the rectum, removed with a hot snare. Resected and retrieved. - The examination was otherwise normal. Recommendations : - Discharge patient to home. - Resume previous diet. - Continue present medications. - Repeat colonoscopy in 1 year for surveillance based on pathology results. - Telephone my office for pathology results in 1 week. My findings are described in the full procedure note, which is enclosed. If I can be of further assistance, please feel free to contact me at Doctor phone number(s): Work: . Sincerely, Garry Chawla MD 03/15/2019 7:48:13 AM This report has been signed electronically.
== END 2019-03-15 08:46 | disposition home or self-care (01) ==
LOC: EN 05:46 → AC 05:47
PROVIDERS: Family Provider Internal Medicine; PCP Internal Medicine; Referring Provider Internal Medicine; Visit Provider Surgery
PROC: 0DJD8ZZ Inspection of Lower Intestinal Tract, Via Natural or Artificial Opening Endoscopic (ICD-10-PCS; CPT 45378; principal; 2019-03-15 06:55)
DX: Z12.11 Encounter for screening for malignant neoplasm of colon (principal); K80.10 Calculus of gallbladder with chronic cholecystitis without obstruction; K62.1 Rectal polyp; D12.5 Benign neoplasm of sigmoid colon; F41.9 Anxiety disorder, unspecified; K44.9 Diaphragmatic hernia without obstruction or gangrene; Z87.891 Personal history of nicotine dependence; Z82.49 Family history of ischemic heart disease and other diseases of the circulatory system; Z87.442 Personal history of urinary calculi
CPT/HCPCS: 45380; 45385; 88305; J7120

== ENCOUNTER 2019-03-30 07:15 | Day surgery (SDC) | payer MEDICARE, OTHER, SELFPAY ==
--- NOTE | 2019-03-07 05:21 | HP_ITS ---
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 Is patient in pain?: No Allergies lactose Adverse Reaction (Verified 03/07/19 14:49) Nausea/Vom/Diarrhea Medications multivitamin capsule 1 cap PO DAILY 05/07/18 [History Confirmed 03/07/19] omega-3 fatty acids 1,000 mg capsule 1,000 mg PO QDAY #90 cap 07/14/18 [Rx Confirmed 03/07/19] rosuvastatin 20 mg tablet 20 mg PO DAILY #90 tab 07/14/18 [Rx Confirmed 03/07/19] ascorbate calcium (vitamin C) 500 mg tablet 500 mg PO DAILY 11/02/18 [History Confirmed 03/07/19] cholecalciferol (vitamin D3) 1,000 unit capsule 1,000 unit PO DAILY 11/02/18 [History Confirmed 03/07/19] amlodipine 10 mg-benazepril 40 mg capsule 1 cap PO QDAY #90 cap 11/08/18 [Rx Confirmed 03/07/19] hydrocodone 5 mg-acetaminophen 325 mg tablet 1 tab PO Q6H PRN 02/15/19 [History Confirmed 03/07/19] PFSH Medical History Sleep apnea (Chronic) Emphysema lung (Chronic) Plantar fasciitis (Acute) Kidney stones (Chronic) Hyperlipemia (Chronic) Hypertension (Chronic) Surgical History History of salpingectomy (Acute) History of laparoscopy (Acute) Family History Mother Asthma Arthritis Father Asthma Social History (Updated 03/07/19 @ 17:22 by Garry Chawla MD) Smoking Status: Never smoker how long ago did patient quit smokin, 1p/day second hand exposure: Yes alcohol intake: never what type of physical activity do you participate in: aerobics, weight training frequency: daily HPI HPI HPI: JULIA MIMS, is a 64 F who presents to the office today for HPI HPI Surgical H&P: Yes HPI: JULIA MIMS, is a 64 F who presents to the office today for surgical consultation regarding right upper quadrant pain and gallstones and kidney stones. The patient is referred by Dr. Aarti Huang and a written copy of my surgical consult will be returned to her. The patient is currently 64. She states that perhaps as long as 5 years ago she was diagnosed with gallstones. It was felt that they likely were asymptomatic at that time. The patient describes at that time she also had kidney stones. She has had some ongoing intermittent hematuria. A month ago she had right upper quadrant and right mid abdominal pain. She did have some streaky amount of blood in her's urine but that resolved. She was seen at the [facility] emergency room on January 16, 2019. A CT scan of the abdomen and pelvis was obtained. This demonstrated multiple gallstones seen. There was a nonobstructing calculus of the inferior right kidney. No hydronephrosis. A small hiatal hernia was noted. At that time it was suggested that her pain was more in the lower abdomen. She denies fever or chills. She claims that she occasionally has sweats. As of February 19, 2019 her white blood cell count was 7000 with a hemoglobin of 12.5 and hematocrit of 38.4 with a platelet count of 212,000 and a normal differential. BUN was 7 and creatinine 0.8. The patient has carried some anxiety regarding surgical intervention. Although her has had 3 colonoscopies she herself is never had a single colonoscopy. She is not aware of any family history in her blood line of colon polyps or colon cancer. Her father however had hypertension and asthma. She has not noticed any bright red blood per rectum or melena. She points to the right subcostal area right flank area and right mid abdomen is a source of the discomfort. She does state that this is increased with fatty food intake. ROS General General: Yes fatigue; no weight change, appetite, colon cancer, breast cancer or weakness HEENT HEENT: No difficulty swallowing, eye injury, eye surgery, swollen glands or hoarseness Endo Endocrine: No thyroid disease, diabetes mellitus, thyroid cancer, Hair loss, heat intolerance or cold intolerance Skin Skin: No rash or changing moles Breast Breast: No left breast lump, right breast lump, nipple discharge, breast pain, abnormal mammogram, abnormal US or breast enlargement Musc Musculoskeletal: No back problems, arthritis, rheumatoid arthritis, gout or joint pain Cardio Cardiovascular: Yes high blood pressure; no murmur, pacemaker, heart disease, atrial fibrillation, heart attack, heart stent, palpitations, shortness of breat with exertion or chest pain Psych Psychiatric: No depression, anxiety or hearing voices Resp Respiratory: No shortness of breath, Yes sleep apnea, No cough, No COPD, No asthma, Yes emphysema, No wheezing Gastro Gastrointestinal: Yes abdominal pain, Yes nausea or vomiting, No diarrhea, Yes constipation, No blood in stool, No acid reflux, No hemorrhoids, No ulcers, Yes gallbladder problem, No black,tarry stools Dashawn Hematologic: No blood thinners, No blood disorders, No bleeding, No anemia, No blood clots Neuro Neurologic: No system reviewed and no additional complaints, except as docu, No as per HPI, No abnormal walking, No abnormal hearing, No abnormal movements, No abnormal speech, No behavioral changes, No burning sensations, No confusion, No seizure-like activity, No unsteadiness, No dizziness, No localized weakness, No frequent falls, No headache(s), No lack of coordination, No loss of vision, No memory loss, No numbness, No other visual disturbances, No radiating pain, No restless legs, No sensory deficit, No fainting, No tingling, No tremor(s), No weakness, No other Exam Const General: cooperative, comfortable, no acute distress, anxious Nutritional Appearance: overweight Orientation: alert, awake, oriented x3 HENMT Head: normal to inspection Eyes General: appearance normal, both eyes and all related structures Chest Breast Palpation: No nipple discharge Resp Effort & Inspection: normal respiratory effort Auscultation: clear to auscultation bilaterally Cardio Rate: regular rate Rhythm: regular rhythm Heart Sounds: no murmurs GI Palpation: soft, no hepatosplenomegaly Auscultation: normal bowel sounds Other: Mild tenderness right upper quadrant but similar mild tenderness left upper quadrant. No focal masses. No rebound or guarding. Normal bowel sounds Hypertrophic infraumbilical midline incision related to previous gynecologic surgery for tubal pregnancies x2 Musc Cervical Spine: normal cervical lordosis Skin Lesions: no lesions Neuro Cognition: normal cognition Extrem General: no calf tenderness bilaterally Psych Affect: normal affect Assessment & Plan Problems 1. Calculus of gallbladder with chronic cholecystitis without obstruction K80.10 2. Screening for intestinal cancer Z12.10 Plan At age 64 the patient has never had a screening colonoscopy yet she is having abdominal pain. I recommend to her a screening colonoscopy with possible biopsy or polypectomy as indicated. She is aware of the technique, benefit, risks, alternatives. This would be performed with monitored anesthesia care. And additionally I recommended the patient a laparoscopic cholecystectomy with selective cholangiography. I believe that is very difficult to decipher the potential differences between her right flank pain with known kidney stones and known gallstones. She seems to have a GI component with post prandial discomfort. With her present I have discussed technique, benefit, risks, alternatives. She has a infraumbilical midline incision. Consideration for possible Ricks technique will be utilized. She has had an opportunity to ask and have questions answered. She will schedule and proceed at her discretion. I very much appreciate the kind opportunity of assisting with her surgical care CC: Dr.Efewongbe Reina Chawla M.D., F.A.C.S. Coding Level of Care Code 16015 Diagnoses Calculus of gallbladder with chronic cholecystitis without obstruction K80.10 ??Cholelithiasis location: gallbladder ??Biliary obstruction: without biliary obstruction Screening for intestinal cancer Z12.10 03/07/19 1722 <Electronically signed by Garry vizcarra MD> Date _ Garry Chawla MD I have re-examined the patient. There are no clinical changes since date of exam.
[2019-03-07 14:49] VITALS: BMI 33.5
[2019-03-15 06:09] VITALS: BMI 32.1
[2019-03-28 14:41] LABS: Absolute Lymphocyte Count 1.78 X10^3/uL (0.83-4.51); Absolute Neutrophil Count 1.4 X10^3/uL (2.0-7.7); Basophil# 0.05 X10^3/uL; Basophil% 1.4 % (0-1); Eosinophil# 0.11 X10^3/uL; Hemoglobin 12.3 g/dL (12.0-15.0); Lymphocyte # 1.78 X10^3/ul (4.0); Lymphocyte % 48.4 % (19-41); Mean Corp Hgb Conc 32.4 g/dL (32-36); Mean Corpuscular Hgb 30.4 pg (27.0-32.0); Mean Corpuscular Volume 93.8 fL (81-99); Mean Platelet Vol. 10.1 fl (6.2-12.0); Monocyte# 0.32 X10^3/uL; Monocyte% 8.7 % (0-10); NRBC Flagged by Analyzer 0 % (0-5); Neutrophil # 1.41 X10^3/uL (2.7-7.7); Neutrophil % 38.2 % (47-70); Platelet Count 224 K/mm3 (150-450); RBC Distribution Width CV 13.5 % (11.6-14.6); RBC Distribution Width SD 46.3 fl (35.1-43.9); Red Blood Count 4.05 M/mm3 (4.2-5.4); White Blood Count 3.7 K/mm3 (4.4-11.0)
[2019-03-28 14:54] LABS: Anion Gap 3 (5-15); BUN 8 mg/dL (7-18); BUN/Creat Ratio 10.3 RATIO (10-20); Calcium,Total 9.3 mg/dL (8.5-10.1); Chloride 109 mmol/L (98-107); Creatinine, Serum 0.78 mg/dL (0.55-1.02); EST Glomerular Filtration Rate 79 mL/min (>60); Est Glom Filt Rate - Afr Amer 95 mL/min (>60); Glucose 98 mg/dL (74-106); Potassium 3.7 mmol/L (3.5-5.1); Sodium Level 142 mmol/L (136-145)
--- NOTE | 2019-03-28 15:43 | EKG12_ITS ---
Test Reason : PRE-OP Blood Pressure : / mmHG Vent. Rate : 066 BPM Atrial Rate : 066 BPM P-R Int : 196 ms QRS Dur : 090 ms QT Int : 398 ms P-R-T Axes : 061 -17 032 degrees QTc Int : 417 ms Normal sinus rhythm Normal ECG Confirmed by JULIO WEBB, TYLER ([id number]), film editor ANISA HILL ([id number]) on 03/29/2019 1:11:16 PM Referred By: Garry Chawla Confirmed By:TYLER KIM MD
[2019-03-30] VITALS (10 sets, daily range): BP systolic 102–123; BP diastolic 55–69; PULSE 67–78; RESP 16–18; TEMP 36–36.8; O2SAT 94–99; BMI 32.5
--- NOTE | 2019-03-30 | GALL_PTH ---
PATIENT: JULIA MIMS [place] [facility] [place][id number] AGE/SX: 64/F ROOM: RE03/30/[address]: Dr. Garry Chawla MD : 1955 BED: DIS: 03/30/2019 SPEC #: [id number] RECD: 03/30/19 13:55 STATUS: SHILOH AFSHAN #: [id number] VINCE: 03/30/19 00:[address]: Garry Chawla DEPT: SURGICAL PATHOLOGY RECD BY: Burton Ayala ENTERED: 03/30/19 13:55 SP TYPE: GWYN VALENTE DR: Dr. Aarti Huang MD Tissues: Gallbladder, NOS Procedures: Surgery Specimen Level III HEADER OPERATION: Laparoscopic cholecystectomy with IOC PRE-OP DIAGNOSIS: Calculus of gallbladder with chronic cholecystitis without obstruction, cholelithiasis TISSUE SUBMITTED: Gallbladder MICROSCOPIC DIAGNOSIS Gallbladder, cholecystectomy: Mild chronic cholecystitis and cholelithiasis. SJ:abbie 03/31/19 MICROSCOPIC DESCRIPTION Slides are reviewed. GROSS DESCRIPTION Received is one container labeled with the patient's name and designated gallbladder. The specimen consists of a gallbladder measuring 9 cm in length and up to 3 cm in diameter. The external surface is pink-noe, smooth and glistening for the most part. Focally it is granular, hemorrhagic and contains cautery artifact. The gallbladder contains green-yellow mucoid bile and multiple black, multifaceted to irregular stones measuring in aggregate 4 x 4 x 2 cm and <0.1 to 1.5 in greatest dimension. The mucosa is bile-stained and without any mass lesions. The gallbladder wall measures up to 0.2 cm in thickness. Soda Room Operator sections from the gallbladder and the cystic duct are submitted in one cassette. / DIAN:abbie 03/30/19 TC:3 CPT: 03754
[2019-03-30] MEDS: Lactated Ringers 1,000 ML 100 ML IV ×2 (08:00→11:06)
[2019-03-30] MEDS: Cefazolin 2 GM in 0.9% Normal Saline 100 ML IV (08:13)
--- NOTE | 2019-03-30 08:14 | DCINST_ITS ---
Discharge Diet: Light diet - advance as tolerated - if you have questions about your diet instructions, please talk to you doctor. Discharge Activity: May Not Drive - for 3-5 days or while taking narcotic pain medicine. May shower in (days): 1 Lifting Restrictions: 10 pounds Call your doctor if your incision/area has: Continuous Slow Oozing, Sudden Increased Bleeding, Increased Pain/ Swelling, Increased Redness, Foul Smelling Discharge Call your doctor if you observe: Fever of 101 or Higher Suture Line Care: Avoid Pulling/Pushing, Avoid Pinching/Bending Additional Dressing/Incision Instructions:: Change or remove dressing in 4 days. Leave steri-strips in place for 1 week. Allergies/Adverse Reactions: Allergies lactose Adverse Reaction (Verified 03/23/19 12:50) Nausea/Vom/Diarrhea Medications to take at Discharge multivitamin capsule 1 cap PO QODAY 05/07/18 omega-3 fatty acids 1,000 mg capsule 1,000 mg PO QDAY #90 cap 07/14/18 ascorbate calcium (vitamin C) 500 mg tablet 1,000 mg PO QODAY 11/02/18 cholecalciferol (vitamin D3) 1,000 unit capsule 5,000 unit PO DAILY 11/02/18 Amlodipine Besylate/Benazepril [Lotrel 10-40 mg Capsule] 1 cap PO QDAY 03/14/19 Rosuvastatin Calcium [Crestor] 20 mg PO QHS 03/14/19 Primary Care Physician: Aarti Huang MD [Primary Care Provider] - Test Results: Test results from this visit will be discussed in further detail at your follow- up appointment, if applicable. Please Follow Up With: Garry Chawla MD - [phone] When: Call to make an appointment to be seen in about 10 days.
--- NOTE | 2019-03-30 09:23 | OP.PCM_ITS ---
Problem List (1) Cholelithiasis with chronic cholecystitis Status: Chronic Qualifiers: Report of Operation Date of Procedure: 03/30/19 Pre-Operative Diagnosis: Chronic cholecystitis cholelithiasis Post-Operative Diagnosis: Same Surgery/Procedure Performed:: Laparoscopic cholecystectomy with cholangiography Description of Surgical Findings:: Timeout and informed consent was obtained. 64-year-old female was taken to the operating room placement table underwent general endotracheal intubation anesthesia. Ancef 2 g given intravenously preoperatively. The abdomen sterilely prepped draped. Because of a previous infraumbilical midline incision I instilled 0.5% Marcaine local at the superior aspect of the umbilicus. Skin sites were pre-anesthetized throughout the procedure total 30 cc of local was used. A vertical supra and umbilical incision was created sharp dissection carried down through the subcutaneous tissues holding sutures of 0 Vicryl placed the fascia was directly incised vertically and sharp and blunt dissection performed to gain access to the peritoneum. A telemeter trocar inserted the abdomen was inspected there were dense adhesions of omentum from the umbilicus inferiorly. I was able to get access to the right upper quadrant. 5-minute trochars were placed in the epigastric area right upper quadrant right lateral upper quadrant. The gallbladder was distracted with multiple adhesions of omentum to it these were bluntly dissected free and hemostasis obtained with hemo-lock clips. Then the infundibular area of the gallbladder was dissected free. The critical view was achieved with the cystic artery and cystic duct both dissected free the cystic duct lymph node identified. Hem-o-toney clip was placed on the cystic artery a hemo-lock clip was placed on the cystic duct incision made in the cystic duct and through a 14-gauge Angiocath and cholangiogram catheter was inserted fluoroscopically control claims grams were obtained demonstrating normal ductal anatomy and free flow into the small bowel. The clench Sarmad catheter was removed and 2 hemo-lock clips were placed on the cystic duct stump prior to transecting it. The cystic artery was clipped twice proximally once distally prior to transecting it. The gallbladder was dissected free from the liver bed using electrocautery complete hemostasis was intact. Th e gallbladder was placed in a retrieval bag. It was exited at the umbilicus slight enlargement of the fascial incision was required. The remaining trochars were removed under visualization. The abdomen was allowed to deflate at this of the CO2. The fascia at the umbilicus approximate the running 0 Vicryl. Skin edges approximate interrupted 4 Monocryl subdermal stitches. Steri-Strips Telfa and OpSite dressings applied. Sponge and instrument and needle counts were reported the surgeon be correct. The patient was taken to the recovery area in satisfactory condition without apparent complication. Specimens gallbladder. Drains none. Blood loss minimal. Garry Chawla M.D., F.A.C.S. Type of Anesthesia:: General Anesthesiologist: Jac Ruby
--- NOTE | 2019-03-30 09:50 | RAD_ITS ---
STUDY: INTRAOPERATIVE CHOLANGIOGRAM. REASON FOR EXAM: Female, 64 years old. Laparoscopic cholecystectomy FLUOROSCOPY TIME (if supplied): ( 12 seconds ) minutes/seconds TECHNIQUE: An intraoperative cholangiogram was performed by the surgeon. Imaging was submitted. COMPARISON: None. FINDINGS: The common bile duct is not dilated. No intraluminal filling defect is seen. There is free flow of contrast into the duodenum. RAD/Cholangiogram/ O R,Initial IMPRESSION: Unremarkable intraoperative cholangiogram. Electronically Signed: Harry Juárez, at 12:43 EDT , Service support ,
[2019-03-30] MEDS: HYDROcodone Bitartrate/Apap 5/325 Tablet PO (13:13)
== END 2019-03-30 14:14 | disposition home or self-care (01) ==
LOC: SDC 07:15 → AC 07:16
PROVIDERS: Family Provider Internal Medicine; PCP Internal Medicine; Referring Provider Surgery; Visit Provider Surgery
PROC: (CPT 47610; principal; 2019-03-30 09:30)
DX: K80.10 Calculus of gallbladder with chronic cholecystitis without obstruction (principal); F41.9 Anxiety disorder, unspecified; Z82.49 Family history of ischemic heart disease and other diseases of the circulatory system; Z87.891 Personal history of nicotine dependence; E78.5 Hyperlipidemia, unspecified; J43.9 Emphysema, unspecified; G47.30 Sleep apnea, unspecified
CPT/HCPCS: 47563; 36415; 74300; 76000; 80048; 85025; 88304; 93005; J7120; J2405

== ENCOUNTER → 2019-11-23 11:28 | Outpatient (CLI) | payer MEDICARE, SELFPAY ==
[2019-08-23 14:21] VITALS: BMI 33.2
[2019-11-23 13:47] LABS: AST(SGOT) 22 U/L (15-37); Alanine Aminotransfer ALT/SGPT 28 U/L (13-56); Albumin, Serum 3.9 g/dL (3.2-5.0); Alkaline Phosphatase 70 U/L (45-117); Anion Gap 7 (5-15); BUN 14 mg/dL (7-18); BUN/Creat Ratio 17.6 RATIO (10-20); Calcium,Total 9.1 mg/dL (8.5-10.1); Chloride 105 mmol/L (98-107); EST Glomerular Filtration Rate 77 mL/min (>60); Est Glom Filt Rate - Afr Amer 93 mL/min (>60); Glucose 94 mg/dL (74-106); Potassium 3.5 mmol/L (3.5-5.1); Protein, Total 7.9 g/dL (6.4-8.2); Sodium Level 139 mmol/L (136-145)
== END ==
PROVIDERS: PCP Internal Medicine; Referring Provider Internal Medicine; Visit Provider Internal Medicine
DX: I10 Essential (primary) hypertension (principal)
CPT/HCPCS: 36415; 80053

== ENCOUNTER → 2020-04-03 11:10 | Outpatient (CLI) | payer MEDICARE, SELFPAY ==
[2020-04-03 10:22] VITALS: BMI 33.4
[2020-04-03 12:23] LABS: Absolute Lymphocyte Count 1.41 X10^3/uL (0.83-4.51); Absolute Neutrophil Count 1.5 X10^3/uL (2.0-7.7); Basophil# 0.04 X10^3/uL; Basophil% 1.2 % (0-1); Eosinophil# 0.07 X10^3/uL; Eosinophils% 2.1 % (0-5); Hematocrit 41.1 % (37-47); Hemoglobin 13.5 g/dL (12.0-15.0); Lymphocyte # 1.41 X10^3/ul (4.0); Lymphocyte % 42.9 % (19-41); Mean Corp Hgb Conc 32.8 g/dL (32-36); Mean Corpuscular Hgb 30.9 pg (27.0-32.0); Mean Corpuscular Volume 94.1 fL (81-99); Mean Platelet Vol. 10.2 fl (6.2-12.0); Monocyte# 0.25 X10^3/uL; Monocyte% 7.6 % (0-10); NRBC Flagged by Analyzer 0 % (0-5); Neutrophil # 1.52 X10^3/uL (2.7-7.7); Neutrophil % 46.2 % (47-70); Platelet Count 261 K/mm3 (150-450); Red Blood Count 4.37 M/mm3 (4.2-5.4); White Blood Count 3.3 K/mm3 (4.4-11.0)
[2020-04-03 12:45] LABS: ALB/GLOB Ratio 0.9 RATIO (0.9-2.4); AST(SGOT) 15 U/L (15-37); Alanine Aminotransfer ALT/SGPT 23 U/L (13-56); Albumin, Serum 3.9 g/dL (3.2-5.0); Alkaline Phosphatase 72 U/L (45-117); Anion Gap 4 (5-15); BUN 13 mg/dL (7-18); BUN/Creat Ratio 14.9 RATIO (10-20); Calcium,Total 9.4 mg/dL (8.5-10.1); Chloride 110 mmol/L (98-107); Cholesterol 140 mg/dL (200); Creatinine, Serum 0.88 mg/dL (0.55-1.02); EST Glomerular Filtration Rate 69 mL/min (>60); Est Glom Filt Rate - Afr Amer 83 mL/min (>60); Globulin 4.5 g/dL (2.2-4.2); Glucose 102 mg/dL (74-106); High Density Lipoprotein 75 mg/dL; Potassium 3.9 mmol/L (3.5-5.1); Protein, Total 8.4 g/dL (6.4-8.2); Sodium Level 142 mmol/L (136-145); Triglycerides 65 mg/dL; Very Low Density Lipoprotein 13 mg/dL (5-40)
== END ==
PROVIDERS: PCP Internal Medicine; Referring Provider Internal Medicine; Visit Provider Internal Medicine
DX: I10 Essential (primary) hypertension (principal); E78.5 Hyperlipidemia, unspecified
CPT/HCPCS: 36415; 80053; 80061; 85025

== ENCOUNTER → 2020-12-27 14:39 | Outpatient (CLI) | payer MEDICARE, SELFPAY ==
[2020-12-27 14:01] VITALS: BMI 34.5
[2020-12-27 17:04] LABS: ALB/GLOB Ratio 1.1 RATIO (0.9-2.4); AST(SGOT) 20 U/L (15-37); Alanine Aminotransfer ALT/SGPT 31 U/L (13-56); Albumin, Serum 4.1 g/dL (3.2-5.0); Alkaline Phosphatase 81 U/L (45-117); Anion Gap 8 (5-15); BUN 17 mg/dL (7-18); Calcium,Total 9.3 mg/dL (8.5-10.1); Chloride 106 mmol/L (98-107); Creatinine, Serum 0.85 mg/dL (0.55-1.02); EST Glomerular Filtration Rate 71 mL/min (>60); Est Glom Filt Rate - Afr Amer 86 mL/min (>60); Globulin 3.9 g/dL (2.2-4.2); Glucose 101 mg/dL (74-106); Magnesium 2.1 mg/dL (1.6-2.6); Sodium Level 142 mmol/L (136-145)
== END ==
PROVIDERS: PCP Internal Medicine; Referring Provider Internal Medicine; Visit Provider Internal Medicine
DX: I10 Essential (primary) hypertension (principal)
CPT/HCPCS: 36415; 80053; 83735

== ENCOUNTER → 2021-01-07 10:25 | Outpatient (CLI) | payer MEDICARE, SELFPAY ==
[2020-12-27 14:01] VITALS: BMI 34.5
--- NOTE | 2021-01-07 10:28 | EKG12_ITS ---
Test Reason : PALPS Blood Pressure : / mmHG Vent. Rate : 067 BPM Atrial Rate : 067 BPM P-R Int : 168 ms QRS Dur : 098 ms QT Int : 398 ms P-R-T Axes : 057 -15 046 degrees QTc Int : 420 ms Normal sinus rhythm Normal ECG Confirmed by JULIO WEBB, TYLER ([id number]), development editor ANISA HILL ([id number]) on 01/08/2021 7:38:44 AM Referred By: Aarti Huang Confirmed By:TYLER KIM MD
== END ==
PROVIDERS: PCP Internal Medicine; Referring Provider Internal Medicine; Visit Provider Internal Medicine
DX: I10 Essential (primary) hypertension (principal); I49.9 Cardiac arrhythmia, unspecified
CPT/HCPCS: 93005

== ENCOUNTER → 2021-01-09 12:16 | Outpatient (CLI) | payer MEDICARE, SELFPAY ==
[2020-12-27 14:01] VITALS: BMI 34.5
--- NOTE | 2021-01-09 12:17 | BI_ITS ---
MAMMOGRAPHY - BILATERAL SCREENING REASON FOR EXAM: Female, 65 years old. Routine annual screening examination. PERTINENT HISTORY: Non-contributory. TECHNIQUE: Digital bilateral breast rodolfo (3D mammographic acquisition) in the CC and MLO projections. 2-D mediolateral oblique (MLO) and craniocaudad (CC) views of both breasts were obtained. CAD: Full Field Digital Mammography with Computer Added Detection was performed. COMPARISON: None. Baseline examination. FINDINGS: Breast Composition: The breasts are heterogeneously dense, which may obscure small masses. There are no dominant masses or suspicious calcifications. Stable benign-appearing bilateral axillary lymph nodes. There is a 3.6 mm well-defined lymph node in the superior anterior lateral aspect of the left breast. No other significant abnormalities are identified. There has been no significant change since the prior study. BI/SCRN MAMM (CAD)W/RODOLFO BILAT IMPRESSION: Stable bilateral screening mammogram. Yearly follow-up mammogram recommended. (A) ASSESSMENT CATEGORY: BIRADS Category 2: Benign. A letter regarding these results will be sent to the patient by the facility within 30 days. Approximately 10% of breast cancers are not detected by mammography. A normal mammogram should not delay biopsy of a clinically suspicious abnormality. [id number] Electronically Signed: Harry Juárez MD at 13:18 EDT , Service support ,
== END ==
PROVIDERS: PCP Internal Medicine; Referring Provider Internal Medicine; Visit Provider Internal Medicine
DX: Z12.31 Encounter for screening mammogram for malignant neoplasm of breast (principal)
CPT/HCPCS: 77063; 77067

== ENCOUNTER 2021-01-25 05:49 | Day surgery (SDC) | payer MEDICARE, SELFPAY ==
[2020-12-27 14:01] VITALS: BMI 34.5
[2021-01-25] VITALS (15 sets, daily range): BP systolic 89–141; BP diastolic 57–83; PULSE 54–73; RESP 16–18; TEMP 35.6–36.8; O2SAT 91–100; BMI 32.4
--- NOTE | 2021-01-25 06:27 | PCM.HP.STD ---
HPI - General HPI Narrative JULIA MIMS, is a 65 F who presents via open access today. She has a previous history of multiple colon polyps on a colonoscopy February 2019. Complete resection was somewhat difficult to assess and so a return at a shorter period of time was recommended. She otherwise enjoys good health. No exposure to COVID-19. She has been vaccinated. [facility] Medical History (Updated 01/25/21 @ 06:[address] Garry Chawla MD) Arrhythmia Arthritis Cholelithiasis with chronic cholecystitis CPAP (continuous positive airway pressure) dependence Eczema Emphysema lung Health care maintenance Hyperlipemia Hypertension Kidney stones Non-smoker Plantar fasciitis Screening for intestinal cancer Seasonal allergies Sleep apnea Wears glasses Home Medications multivitamin 1 cap PO QODAY 05/07/18 [History Last Taken Unknown] ascorbate calcium (vitamin C) 500 mg tablet 1,000 mg PO QODAY 11/02/18 [History Last Taken Unknown] cholecalciferol (vitamin D3) 25 mcg (1,000 unit) capsule 5,000 unit PO DAILY 11/02/18 [History Last Taken Unknown] omega-3 acid ethyl esters 1 gram capsule See Rx Instructions .ROUTE .COMPLEX #30 cap 07/25/20 [Rx Last Taken Unknown] melatonin 10 mg capsule 10 mg PO HS PRN 12/27/20 [History Last Taken Unknown] amlodipine 10 mg-benazepril 40 mg capsule 1 cap PO QDAY #90 cap 01/22/21 [Rx Last Taken 01/25/21 05:15 1 CAP] rosuvastatin 20 mg PO QHS 01/22/21 [History Last Taken Unknown] Allergy/AdvReac Type Severity Reaction Status Date / Time lactose AdvReac Nausea/Vom/ Verified 01/22/21 10:42 Diarrhea Family History Mother Asthma Arthritis Father Asthma Surgical History (Updated 01/22/21 @ 10:47 by Rayna Terrell) History of colonoscopy history of gallbladder sugery History of laparoscopy History of salpingectomy Social History Smoking Status: Never smoker how long ago did patient quit smokin, 1p/day second hand exposure: Yes alcohol intake: never what type of physical activity do you participate in: aerobics and weight training frequency: daily ROS Constitutional Constitutional: Reports systems reviewed and no addt'l complaints, except as documented Cardiovascular Cardiovascular: Denies chest pain Respiratory/Chest Respiratory/Chest: Denies shortness of breath at rest Gastrointestinal Gastrointestinal: Denies abdominal pain, change in bowel habits, hematochezia or melena Vital Signs Vital Signs Vital Signs: 01/25/21 06:17 Temperature 98.2 F Temperature Source Temporal Pulse Rate 73 Respiratory Rate 16 Respiratory Pattern Normal Blood Pressure 119/72 Blood Pressure Mean 87 Blood Pressure Source Monitor Blood Pressure Position Semi-Fowlers Blood Pressure Location Left Arm Pulse Ox 95 Oxygen Delivery Method Room Air Weight Weight: 174 lb 9.698 oz Body Mass Index (BMI) 32.4 Physical Exam Const alert, oriented x3 and no apparent distress General Appearance: cooperative and comfortable Eyes General Eye: normal appearance of both eyes Neck General: normal visual inspection Chest inspection of chest normal Resp Effort and Inspection: able to speak in complete sentences and symmetric chest movement Auscultation: clear to auscultation bilaterally Cardio regular rate and regular rhythm GI soft to palpation, non-tender and non-distended Extremity no calf tenderness Neuro oriented x3 Psych thought process normal Assessment & Plan Assessment/Plan (1) Personal history of colonic polyps: PLAN: Personal history of multiple colon polyps. I recommend a colonoscopy with possible biopsy or polypectomy as indicated. The patient presents via open access today. She has had an opportunity to ask and have questions answered. We will proceed as noted. aGrry Chawla M.D., F.A.C.S.
[2021-01-25] MEDS: Lactated Ringers 1,000 ML 100 ML IV ×2 (06:35→08:27)
--- NOTE | 2021-01-25 07:00 | COLBX_PTH ---
PATIENT: JULIA MIMS LOC: EN U#:[id number] AGE/SX: 65/F ROOM: RE01/25/[address]: Dr. Garry Chawla MD : 1955 BED: DIS: 01/25/2021 SPEC #: [id number] RECD: 01/25/21 10:37 STATUS: SHILOH CAVANAUGH #: [id number] VINCE: 01/25/21 07:[address]: Garry Chawla DEPT: SURGICAL PATHOLOGY RECD BY: Tim Flores ENTERED: 01/25/21 13:48 SP TYPE: COLON BX OTHR DR: Dr. Aarti Huang MD Tissues: Rectum, NOS Procedures: Surgery Specimen Level IV HEADER OPERATION: Colonoscopy ? open access (MOD) PRE-OP DIAGNOSIS: History of colon polyps TISSUE SUBMITTED: Rectal polyps x3 biopsy MICROSCOPIC DIAGNOSIS Rectal polyps x3, biopsy: Fragments of tubular adenoma. Fragments of hyperplastic polyp. SJ:abbie 01/28/2021 MICROSCOPIC DESCRIPTION Slides are reviewed. GROSS DESCRIPTION Received in fixative is one container labeled with the patient's name and designated rectal polyp biopsy. The specimen consists of multiple irregular fragments of light noe soft tissue that in aggregate measure 1 x 0.5 x 0.1 cm. The specimen is totally submitted in one cassette. / DIAN:abbie 01/25/21 TC:1 CPT: 60780
[2021-01-25] MEDS: Midazolam 5 MG/ML Syringe (07:05)
--- NOTE | 2021-01-25 07:34 | OP.COLON_ITS ---
Patient Name: Lex Zamora Procedure Date: 01/25/2021 6:59 AM Date of : 1955 Age: 65 Procedure: Colonoscopy Indications: High risk colon cancer surveillance: Personal history of colonic polyps Providers: Garry Chawla MD Medicines: Midazolam 4 mg IV, Meperidine 100 mg IV Patient Profile: Last Colonoscopy: February 2019. Complications: No immediate complications. Procedure: Pre-Anesthesia Assessment: - Prior to the procedure, a History and Physical was performed, and patient medications and allergies were reviewed. The patient's tolerance of previous anesthesia was also reviewed. The risks and benefits of the procedure and the sedation options and risks were discussed with the patient. All questions were answered, and informed consent was obtained. Prior Anticoagulants: The patient has taken no previous anticoagulant or antiplatelet agents. ASA Grade Assessment: II - A patient with mild systemic disease. After reviewing the risks and benefits, the patient was deemed in satisfactory condition to undergo the procedure. After I obtained informed consent, the scope was passed under direct vision. Throughout the procedure, the patient's blood pressure, pulse, and oxygen saturations were monitored continuously. The colonoscope was introduced through the anus and advanced to the cecum, identified by appendiceal orifice and ileocecal valve. The colonoscopy was performed without difficulty. The patient tolerated the procedure well. The quality of the bowel preparation was good. The ileocecal valve and the appendiceal orifice were photographed. Moderate Sedation: Moderate (conscious) sedation was personally administered by the endoscopist. The following parameters were monitored: oxygen saturation, heart rate, blood pressure, and response to care. Total physician intraservice time was 15 minutes. Scope In: 7:06:38 AM Scope Withdrawal Time 0 hours 13 minutes 8 seconds Scope Out: 7:24:21 AM Total Procedure Duration Time 0 hours 17 minutes 43 seconds Findings: The perianal and digital rectal examinations were normal. Three 4 mm polyp was found in the rectum. The polyp was sessile. The polyp was removed with a cold biopsy forceps. Resection and retrieval were complete. Scattered diverticula were found in the sigmoid colon. Impression: - Three 4 mm polyp in the rectum, removed with a cold biopsy forceps. Resected and retrieved. - Diverticulosis in the sigmoid colon. Recommendation: - Discharge patient to home. - Resume regular diet. - Continue present medications. - Repeat colonoscopy in 5 years for surveillance. - Telephone nurse practitioner for pathology results in 1 week. Procedure Code(s): --- Professional --- 23755, Colonoscopy, flexible; with biopsy, single or multiple 00783, 59, Moderate sedation services provided by the same physician or other qualified health hospice care sales consultant performing the diagnostic or therapeutic service that the sedation supports, requiring the presence of an independent trained observer to assist in the monitoring of the patient's level of consciousness and physiological status; initial 15 minutes of intraservice time, patient age 5 years or older Diagnosis Code(s): --- Professional --- Z86.010, Personal history of colonic polyps K62.1, Rectal polyp K57.30, Diverticulosis of large intestine without perforation or abscess without bleeding CPT copyright 2017 [employer]. All rights reserved. The codes documented in this report are preliminary and upon steam powerplant supervisor review may be revised to meet current compliance requirements. Garry Chawla MD 01/25/2021 7:33:56 AM This report has been signed electronically. Number of Addenda: 0 Note Initiated On: 01/25/2021 6:59 AM
--- NOTE | 2021-01-25 07:35 | OP.CCLET_ITS ---
01/25/2021 Aarti Huang MD [address] [place] [address] Re : Colonoscopy procedure for Lex Zamora Dear Dr. Huang This procedure was performed on Monday, January 25, 2021. My impressions and recommendations are as follows: Impressions : - Three 4 mm polyp in the rectum, removed with a cold biopsy forceps. Resected and retrieved. - Diverticulosis in the sigmoid colon. Recommendations : - Discharge patient to home. - Resume regular diet. - Continue present medications. - Repeat colonoscopy in 5 years for surveillance. - Telephone nurse practitioner for pathology results in 1 week. My findings are described in the full procedure note, which is enclosed. If I can be of further assistance, please feel free to contact me at Doctor phone number(s): Work: . Sincerely, Garry Chawla MD 01/25/2021 7:33:56 AM This report has been signed electronically.
== END 2021-01-25 09:20 ==
LOC: EN 05:50 → AC 05:51
PROVIDERS: PCP Internal Medicine; Referring Provider Internal Medicine; Visit Provider Surgery
PROC: 0DJD8ZZ Inspection of Lower Intestinal Tract, Via Natural or Artificial Opening Endoscopic (ICD-10-PCS; CPT 45378; principal; 2021-01-25 06:55)
DX: Z12.11 Encounter for screening for malignant neoplasm of colon (principal); K62.1 Rectal polyp; K57.30 Diverticulosis of large intestine without perforation or abscess without bleeding; Z86.010 Personal history of colon polyps; E78.5 Hyperlipidemia, unspecified; I10 Essential (primary) hypertension; Z87.891 Personal history of nicotine dependence
CPT/HCPCS: 45380; 88305; 99152; 99153; J7120

== ENCOUNTER → 2021-05-20 11:08 | Outpatient (CLI) | payer MEDICARE, SELFPAY ==
[2021-05-20 12:05] LABS: Absolute Lymphocyte Count 1.43 X10^3/uL (0.83-4.51); Absolute Neutrophil Count 1.4 X10^3/uL (2.0-7.7); Basophil# 0.03 X10^3/uL; Basophil% 0.9 % (0-1); Eosinophil# 0.08 X10^3/uL; Eosinophils% 2.4 % (0-5); Hematocrit 39.5 % (37-47); Lymphocyte # 1.43 X10^3/ul (0.83-4.51); Lymphocyte % 43.7 % (19-41); Mean Corp Hgb Conc 32.9 g/dL (32-36); Mean Corpuscular Hgb 31.1 pg (27.0-32.0); Mean Corpuscular Volume 94.5 fL (81-99); Mean Platelet Vol. 10.1 fl (6.2-12.0); Monocyte# 0.33 X10^3/uL; Monocyte% 10.1 % (0-10); NRBC Flagged by Analyzer 0 % (0-5); Neutrophil # 1.38 X10^3/uL (2.7-7.7); Neutrophil % 42.3 % (47-70); Platelet Count 243 K/mm3 (150-450); RBC Distribution Width CV 13.3 % (11.6-14.6); RBC Distribution Width SD 45.9 fl (35.1-43.9); Red Blood Count 4.18 M/mm3 (4.2-5.4); White Blood Count 3.3 K/mm3 (4.4-11.0)
[2021-05-20 12:09] LABS: ALB/GLOB Ratio 0.9 RATIO (0.9-2.4); AST(SGOT) 18 U/L (15-37); Alanine Aminotransfer ALT/SGPT 27 U/L (13-56); Albumin, Serum 3.6 g/dL (3.2-5.0); Alkaline Phosphatase 66 U/L (45-117); Anion Gap 4 (5-15); BUN 10 mg/dL (7-18); BUN/Creat Ratio 12.6 RATIO (10-20); Calcium,Total 8.9 mg/dL (8.5-10.1); Chloride 108 mmol/L (98-107); Cholesterol 150 mg/dL (200); Creatinine, Serum 0.79 mg/dL (0.55-1.02); EST Glomerular Filtration Rate 77 mL/min (>60); Est Glom Filt Rate - Afr Amer 93 mL/min (>60); Globulin 4.2 g/dL (2.2-4.2); Glucose 99 mg/dL (74-106); High Density Lipoprotein 72 mg/dL; Potassium 3.9 mmol/L (3.5-5.1); Protein, Total 7.8 g/dL (6.4-8.2); Sodium Level 140 mmol/L (136-145); Triglycerides 89 mg/dL; Very Low Density Lipoprotein 18 mg/dL (5-40)
== END ==
PROVIDERS: PCP Internal Medicine; Referring Provider Internal Medicine; Visit Provider Internal Medicine
DX: I10 Essential (primary) hypertension (principal)
CPT/HCPCS: 36415; 80053; 80061; 85025

== ENCOUNTER → 2021-12-03 | Outpatient (CLI) | payer MEDICARE, SELFPAY ==
[2021-12-03 12:32] LABS: Anion Gap 2 (5-15); BUN 13 mg/dL (7-18); BUN/Creat Ratio 15.2 RATIO (10-20); Calcium,Total 9.3 mg/dL (8.5-10.1); Chloride 108 mmol/L (98-107); Creatinine, Serum 0.86 mg/dL (0.55-1.02); EST Glomerular Filtration Rate 70 mL/min (>60); Est Glom Filt Rate - Afr Amer 85 mL/min (>60); Glucose 109 mg/dL (74-106); Sodium Level 140 mmol/L (136-145)
== END | disposition home or self-care (01) ==
LOC: BIMLAB 10:21
PROVIDERS: PCP Internal Medicine; Referring Provider Internal Medicine; Visit Provider Internal Medicine
DX: I10 Essential (primary) hypertension (principal)
CPT/HCPCS: 36415; 80048

== ENCOUNTER → 2022-04-04 | Outpatient (CLI) | payer MEDICARE, SELFPAY ==
[2022-04-04 12:07] LABS: Absolute Lymphocyte Count 1.34 X10^3/uL (0.83-4.51); Absolute Neutrophil Count 1.1 X10^3/uL (2.0-7.7); Basophil# 0.04 X10^3/uL; Basophil% 1.3 % (0-1); Eosinophil# 0.14 X10^3/uL; Eosinophils% 4.7 % (0-5); Hematocrit 40.1 % (37-47); Hemoglobin 13.1 g/dL (12.0-15.0); Lymphocyte # 1.34 X10^3/ul (0.83-4.51); Lymphocyte % 44.5 % (19-41); Mean Corp Hgb Conc 32.7 g/dL (32-36); Mean Corpuscular Hgb 30.8 pg (27.0-32.0); Mean Corpuscular Volume 94.4 fL (81-99); Mean Platelet Vol. 10.2 fl (6.2-12.0); Monocyte# 0.37 X10^3/uL; Monocyte% 12.3 % (0-10); NRBC Flagged by Analyzer 0 % (0-5); Neutrophil # 1.11 X10^3/uL (2.7-7.7); Neutrophil % 36.9 % (47-70); Platelet Count 233 K/mm3 (150-450); RBC Distribution Width CV 13.2 % (11.6-14.6); Red Blood Count 4.25 M/mm3 (4.2-5.4)
[2022-04-04 12:27] LABS: ALB/GLOB Ratio 0.8 RATIO (0.9-2.4); AST(SGOT) 21 U/L (15-37); Alanine Aminotransfer ALT/SGPT 32 U/L (13-56); Albumin, Serum 3.6 g/dL (3.2-5.0); Alkaline Phosphatase 70 U/L (45-117); Anion Gap 7 (5-15); BUN 12 mg/dL (7-18); BUN/Creat Ratio 14.1 RATIO (10-20); Chloride 108 mmol/L (98-107); Cholesterol 134 mg/dL (200); Creatinine, Serum 0.85 mg/dL (0.55-1.02); EST Glomerular Filtration Rate 70 mL/min (>60); Est Glom Filt Rate - Afr Amer 85 mL/min (>60); Globulin 4.3 g/dL (2.2-4.2); Glucose 100 mg/dL (74-106); High Density Lipoprotein 70 mg/dL; Protein, Total 7.9 g/dL (6.4-8.2); Sodium Level 141 mmol/L (136-145); Triglycerides 61 mg/dL; Very Low Density Lipoprotein 12 mg/dL (5-40)
== END | disposition home or self-care (01) ==
LOC: BIMLAB 11:07
PROVIDERS: PCP Internal Medicine; Referring Provider Internal Medicine; Visit Provider Internal Medicine
DX: I10 Essential (primary) hypertension (principal)
CPT/HCPCS: 36415; 80053; 80061; 85025

== ENCOUNTER → 2022-10-03 | Outpatient (CLI) | payer MEDICARE, SELFPAY ==
[2022-10-03 13:41] LABS: Anion Gap 7 (5-15); BUN 10 mg/dL (7-18); BUN/Creat Ratio 11.8 RATIO (10-20); Calcium,Total 9.2 mg/dL (8.5-10.1); Chloride 108 mmol/L (98-107); Creatinine, Serum 0.85 mg/dL (0.55-1.02); EST Glomerular Filtration Rate 70 mL/min (>60); Est Glom Filt Rate - Afr Amer 85 mL/min (>60); Glucose 106 mg/dL (74-106); Potassium 3.9 mmol/L (3.5-5.1); Sodium Level 141 mmol/L (136-145)
== END | disposition home or self-care (01) ==
LOC: BIMLAB 10:32
PROVIDERS: PCP Internal Medicine; Referring Provider Internal Medicine; Visit Provider Internal Medicine
DX: I10 Essential (primary) hypertension (principal)
CPT/HCPCS: 36415; 80048

== ENCOUNTER → 2023-04-03 | Outpatient (CLI) | payer MEDICARE, SELFPAY ==
[2023-04-03 12:17] LABS: Absolute Lymphocyte Count 1.52 X10^3/uL (0.83-4.51); Absolute Neutrophil Count 1.5 X10^3/uL (2.0-7.7); Basophil# 0.04 X10^3/uL; Basophil% 1.1 % (0-1); Eosinophil# 0.26 X10^3/uL; Eosinophils% 7.1 % (0-5); Hematocrit 40.9 % (37-47); Lymphocyte # 1.52 X10^3/ul (0.83-4.51); Lymphocyte % 41.6 % (19-41); Mean Corp Hgb Conc 31.8 g/dL (32-36); Mean Corpuscular Hgb 30.2 pg (27.0-32.0); Mean Corpuscular Volume 95.1 fL (81-99); Mean Platelet Vol. 10.3 fl (6.2-12.0); Monocyte# 0.36 X10^3/uL; Monocyte% 9.9 % (0-10); NRBC Flagged by Analyzer 0 % (0-5); Neutrophil # 1.46 X10^3/uL (2.7-7.7); Platelet Count 268 K/mm3 (150-450); RBC Distribution Width CV 13.2 % (11.6-14.6); RBC Distribution Width SD 46.1 fl (35.1-43.9); White Blood Count 3.7 K/mm3 (4.4-11.0)
[2023-04-03 12:55] LABS: ALB/GLOB Ratio 0.8 RATIO (0.9-2.4); AST(SGOT) 14 U/L (15-37); Alanine Aminotransfer ALT/SGPT 26 U/L (13-56); Albumin, Serum 3.5 g/dL (3.2-5.0); Alkaline Phosphatase 69 U/L (45-117); Anion Gap 5 (5-15); BUN 11 mg/dL (7-18); BUN/Creat Ratio 13.1 RATIO (10-20); Calcium,Total 9.1 mg/dL (8.5-10.1); Chloride 107 mmol/L (98-107); Cholesterol 146 mg/dL (200); Creatinine, Serum 0.84 mg/dL (0.55-1.02); EST Glomerular Filtration Rate 72 mL/min (>60); Est Glom Filt Rate - Afr Amer 87 mL/min (>60); Globulin 4.2 g/dL (2.2-4.2); Glucose 104 mg/dL (74-106); High Density Lipoprotein 68 mg/dL; Potassium 3.8 mmol/L (3.5-5.1); Protein, Total 7.7 g/dL (6.4-8.2); Sodium Level 140 mmol/L (136-145); Triglycerides 101 mg/dL; Very Low Density Lipoprotein 20 mg/dL (5-40)
== END | disposition home or self-care (01) ==
LOC: BIMLAB 10:44
PROVIDERS: PCP Internal Medicine; Referring Provider Internal Medicine; Visit Provider Internal Medicine
DX: I10 Essential (primary) hypertension (principal)
CPT/HCPCS: 36415; 80053; 80061; 85025

== ENCOUNTER 2023-05-01 05:54 | Day surgery (SDC) | payer MEDICARE, SELFPAY ==
--- NOTE | 2023-04-15 12:29 | EKG12_ITS ---
Test Reason : PRE-OP Blood Pressure : / mmHG Vent. Rate : 073 BPM Atrial Rate : 073 BPM P-R Int : 160 ms QRS Dur : 088 ms QT Int : 386 ms P-R-T Axes : 045 -22 045 degrees QTc Int : 425 ms Normal sinus rhythm Normal ECG Confirmed by JULIO WEBB, TYLER ([id number]), online editor ANTONETTE RASCON ([id number]) on 04/16/2023 6:51:44 AM Referred By: Yesenia Prescott Confirmed By:TYLER KIM MD
[2023-05-01 06:22] VITALS: BP 110/71; PULSE 75; RESP 18; TEMP 36.4; O2SAT 99; BMI 33.6
[2023-05-01] MEDS: Lactated Ringers 1,000 ML 15 ML IV (06:27)
--- NOTE | 2023-05-01 07:05 | PCM.HP.BLA ---
History and Physical Date of Admission: 05/01/23 The patient is examined and there are no changes from the H&P dated 04/03/23. Pt with a scalp mass of her right scalp. 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
--- NOTE | 2023-05-01 07:30 | LES_PTH ---
PATIENT: JULIA MIMS LOC: [facility] [place] [facility] U#:[id number] AGE/SX: 68/F ROOM: RE05/01/[address]: Dr. Yesenia Prescott MD : 1955 BED: DIS: 05/01/2023 SPEC #: [id number] RECD: 05/01/23 11:05 STATUS: SHILOH CAVANAUGH #: [id number] VINCE: 05/01/23 07:[address]: Yesenia Prsecott DEPT: SURGICAL PATHOLOGY RECD BY: Becki Duarte ENTERED: 05/01/23 11:29 SP TYPE: Lesion OTHR DR: Dr. 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 SJ: 05/04/2023 MICROSCOPIC DESCRIPTION Slides are reviewed. GROSS DESCRIPTION Received in fixative is one container labeled with the patient's name and designated connective tissue mass right scalp. The specimen consists of a piece of noe-white skin ellipse measuring 3.0 x 1.0 cm and up to 0.7 cm in thickness. The specimen is inked, serially sectioned and reveals a cyst in the underlying tissue measuring 1.0 cm in greatest dimension. The entire specimen is submitted in two cassettes. /DIAN:abbie 05/01/2023 TC:5 CPT: 32962
[2023-05-01] MEDS: Lidocaine 1% /Epi 1:100 (20ml) 20 ML Vial (08:05)
[2023-05-01] MEDS: Bacitracin 500 UNITS/GM PACKET (08:48)
--- NOTE | 2023-05-01 08:54 | DCINST_ITS ---
Discharge Instructions Diet Discharge Diet: No restrictions Activity Additional Activity Instructions:: Keep your back elevated (recliner position) for the next 3-4 nights to decrease swelling and bruising. May shower over the area, but do not scrub. Apply a thin layer of antibiotic ointment (like neosporin, bacitracin, or triple antibiotic ointment) 1 x a day to the area. Follow Up Care Test Results: Test results from this visit will be discussed in further detail at your follow- up appointment, if applicable. Discharge Plan Admission Attending Provider: Yesenia Presoctt Primary Care Provider: Aarti Huang Discharge Orders/Prescriptions Prescriptions: New cephalexin 500 mg capsule 500 mg PO BID Qty: 10 0RF Rx Instructions: Take 2 x a day until finished. No Action multivitamin capsule capsule 1 cap PO QODAY ascorbate calcium (vitamin C) 500 mg tablet 1,000 mg PO QODAY cholecalciferol (vitamin D3) 1,000 unit capsule 1,000 unit capsule 5,000 unit PO DAILY melatonin 10 mg capsule 10 mg PO HS PRN (Reason: Sleep) omega-3 acid ethyl esters 1 gram capsule See Rx Instructions .ROUTE .COMPLEX Qty: 30 11RF Dose Instruction: TAKE 1 CAPSULE BY MOUTH EVERY DAY ADMINISTER WITH FOOD (MEAL OR SNACK) Rx Instructions: TAKE 1 CAPSULE BY MOUTH EVERY DAY ADMINISTER WITH FOOD (MEAL OR SNACK) rosuvastatin 20 mg tablet 20 mg PO QHS Qty: 90 3RF amlodipine-benazepril 10-40 mg capsule 1 cap PO QDAY Qty: 90 3RF Referrals / Follow Up: Aarti Huang MD [Primary Care Provider] - Disposition Disposition (needs filled in before D/C Order can be placed): Home, Self Care
--- NOTE | 2023-05-01 09:01 | PCM.OPRPT ---
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 Informed consent was obtained. She is marked in the preop holding area prior to surgery. The patient is brought to the operating room and placed under general anesthesia in the supine position. Patient is then positioned into a left lateral decubitus position with care to pad all pressure points, apply sequential compression stockings, and a warming blanket. 1% Xylocaine with epinephrine is used to inject the periphery of the mass. The scalp is prepped and draped in the usual sterile fashion. We initially began with an elliptical incision overlying the mass. Careful dissection is then carried out around the mass. The fluid partially leaks during the procedure and is noted to be watery and clear. The remainder of the cyst wall was removed. This was passed off the operative field to be sent to pathology. Hemostasis is controlled with cautery. The wound is then closed in layers using Vicryl [id number] sutures for the subcutaneous tissue and dermis. Skin edges were approximated with a running simple chromic suture. Antibiotic ointment is placed on the site. She tolerated the procedure well was taken to the recovery area in an awakening in stable condition. Needle and sponge counts are correct. Complications None Admit VTE Documentation VTE Mechan Device Prophylaxis: SCD's
[2023-05-01 09:08] VITALS: BP 110/71; BP 118/66; PULSE 87; RESP 14; TEMP 36.7; O2SAT 89
[2023-05-01 09:15] VITALS: BP 110/71; BP 120/67; PULSE 84; RESP 16; O2SAT 98
[2023-05-01 09:30] VITALS: BP 104/64; BP 110/71; PULSE 73; RESP 16; O2SAT 98
[2023-05-01 09:44] VITALS: BP 102/60; BP 110/71; PULSE 72; RESP 16; TEMP 36.8; O2SAT 96
[2023-05-01 10:43] VITALS: BP 110/71
== END 2023-05-01 10:55 | disposition home or self-care (01) ==
LOC: SDC 05:54 → AC 05:54
PROVIDERS: PCP Internal Medicine; Referring Provider Plastic Surgery; Visit Provider Plastic Surgery
PROC: (CPT 11423; principal; 2023-05-01 07:20)
DX: D23.4 Other benign neoplasm of skin of scalp and neck (principal); E78.5 Hyperlipidemia, unspecified; I10 Essential (primary) hypertension; L30.4 Erythema intertrigo; G47.33 Obstructive sleep apnea (adult) (pediatric); Z87.891 Personal history of nicotine dependence
CPT/HCPCS: 11423; 88300; 93005; J7120; J2405

== ENCOUNTER → 2023-06-02 | Outpatient (CLI) | payer MEDICARE, SELFPAY ==
--- NOTE | 2023-06-02 12:52 | BI_ITS ---
MAMMOGRAPHY - BILATERAL SCREENING REASON FOR EXAM: Female, 68 years old. Routine annual screening examination. PERTINENT HISTORY: Non-contributory. TECHNIQUE: Digital bilateral breast rodolfo (3D mammographic acquisition) in the CC and MLO projections. 2-D mediolateral oblique (MLO) and craniocaudad (CC) views of both breasts were obtained. CAD: Full Field Digital Mammography with Computer Added Detection was performed. COMPARISON: Comparison is made with prior study dated January 09, 2021. FINDINGS: Breast Composition: The breasts are heterogeneously dense, which may obscure small masses. There are no dominant masses or suspicious calcifications. Stable small benign-appearing bilateral axillary lymph nodes. No other significant abnormalities are identified. There has been no significant change since the prior study. BI/SCRN MAMM (CAD)W/RODOLFO BILAT IMPRESSION: Stable bilateral screening mammogram. Yearly follow-up mammogram recommended. (A) ASSESSMENT CATEGORY: BIRADS Category 2: Benign. A letter regarding these results will be sent to the patient by the facility within 30 days. Approximately 10% of breast cancers are not detected by mammography. A normal mammogram should not delay biopsy of a clinically suspicious abnormality. [id number] Electronically Signed: Harry Juárez MD at 14:27 EST ,
--- NOTE | 2023-06-02 12:57 | BD_ITS ---
STUDY: DUAL ENERGY X-RAY ABSORPTIOMETRY / DXA REASON FOR EXAM: Female, 68 years old. Post menopausal TECHNIQUE: Bone Mineral Density (BMD) measurements of lumbar spine and bilateral hips were obtained. COMPARISON: None. FINDINGS: Lumbar Spine (L1-L4): g/cm2 (0.845) / T-score (-3.3) / Z-score (-0.9) Findings are suggestive of osteoporosis with a high fracture risk. Left Femur Total: g/cm2 (0.798) / T-score (-1.5) / Z-score (-0.4) Left Femoral Neck: g/cm2 (0.651) / T-score (-2.1) / Z-score (-0.7) Right Femur Total: g/cm2 (0.772) / T-score (-1.7) / Z-score (-0.5) Right Femoral Neck: g/cm2 (0.667) / T-score (-2.0) / Z-score (-0.6) BD/Dexa Bone Density Study IMPRESSION: The patient is considered osteoporotic as outlined below according to World Hermin[employer] Organization (WHO) criteria with a high fracture risk. Reference Information: The T-score is the number of standard deviations above or below the standard which is normal for young adults at their peak bone mineral density. The World Health Organization (WHO) interprets the T-scores as follows: Above -1 Normal bone density Between -1 and -2.5 Osteopenia Equal to / or below -2.5 Osteoporosis As a practical clinical guideline, osteopenia may be graded as follows: Mild -1 through -1.5 Moderate -1.6 through -2.0 Severe -2.1 through -2.4 The Z-score is the number of standard deviations above or below age-matched controls. A Z-score of less than -1.5 would be considered abnormal. References: 1. NIH Osteoporosis and Related Bone Diseases www osteo.org 2. International Society for Clinical Densitometry www iscd.org 3. National Osteoporosis Foundation www nof.org Electronically Signed: Harry Juárez MD at 12:20 EST ,
== END | disposition home or self-care (01) ==
LOC: OPBD 12:49
PROVIDERS: PCP Internal Medicine; Referring Provider Internal Medicine; Visit Provider Internal Medicine
DX: Z12.31 Encounter for screening mammogram for malignant neoplasm of breast (principal); Z78.0 Asymptomatic menopausal state
CPT/HCPCS: 77063; 77067; 77080

== ENCOUNTER → 2023-06-10 | Outpatient (CLI) | payer MEDICARE, SELFPAY ==
[2023-06-10 17:01] LABS: Anion Gap 2 (5-15); BUN 10 mg/dL (7-18); BUN/Creat Ratio 12.6 RATIO (10-20); Calcium,Total 9.7 mg/dL (8.5-10.1); Chloride 107 mmol/L (98-107); Creatinine, Serum 0.79 mg/dL (0.55-1.02); EST Glomerular Filtration Rate 76 mL/min (>60); Est Glom Filt Rate - Afr Amer 92 mL/min (>60); Glucose 111 mg/dL (74-106); Potassium 4.1 mmol/L (3.5-5.1); Sodium Level 138 mmol/L (136-145)
[2023-06-10 17:05] LABS: Vitamin D,25 Hydroxy 63.6 ng/mL
== END | disposition home or self-care (01) ==
LOC: BIMLAB 15:21
PROVIDERS: PCP Internal Medicine; Referring Provider Internal Medicine; Visit Provider Internal Medicine
DX: M81.0 Age-related osteoporosis without current pathological fracture (principal)
CPT/HCPCS: 36415; 80048; 82306

== ENCOUNTER 2023-07-21 15:21 | Emergency (ER) | payer MEDICARE, SELFPAY ==
[2023-07-21 15:22] VITALS: BP 131/79; PULSE 79; RESP 14; TEMP 35.8; O2SAT 99; BMI 33.8
--- NOTE | 2023-07-21 15:34 | CT_ITS ---
STUDY: CT ABDOMEN AND PELVIS WITHOUT CONTRAST REASON FOR EXAM: Female, 68 years old. Flank pain RADIATION DOSAGE (If Supplied By Facility): CTDIvol = ( 9.71 ) mGy, DLP = ( 458.35 ) mGycm TECHNIQUE: Transaxial images were obtained from the dome of the diaphragm to the symphysis pubis without oral contrast, and without intravenous contrast. Sagittal and coronal images were reconstructed. Individualized dose optimization techniques were used for this CT. COMPARISON: 2018 FINDINGS: The visualized lung bases are unremarkable. The visualized portions of the heart are within normal limits. Normal liver. There is non-visualization of the gallbladder, which may be secondary to either contraction or a prior cholecystectomy. Normal spleen. Normal pancreas. Normal bilateral adrenal glands. There is right-sided hydronephrosis and hydroureter with periureteral inflammatory stranding. Findings due to a 3.5 mm stone in the distal right ureter seen on axial image 142 and coronal recon image 86. Left kidney does not show evidence of obstructive uropathy there are parapelvic renal cysts. There is a small hiatal hernia. Normal small intestine. Normal colon. The appendix is visualized and appears normal. Appendix seen on coronal recon images 62 through 67 Normal abdominal aorta. Normal inferior vena cava. Normal retroperitoneum. Normal urinary bladder. Uterus is present, the endometrium cannot be accurately evaluated with CT. No suspicious cystic mass or free fluid in the pelvis. Normal abdominal wall. There are degenerative changes of the visualized lumbar spine, and pelvis. CT/Abdomen/Pelvis without Cont IMPRESSION: There is right-sided hydronephrosis and hydroureter with periureteral inflammatory stranding. Findings due to a 3.5 mm stone in the distal right ureter No free intraperitoneal fluid, air, or suspicious adenopathy. Normal appendix visualized Parapelvic left renal cysts, no specific follow-up needed. Uterus is present, the endometrium cannot be accurately evaluated with CT Electronically Signed: Harlan Becker MD at 16:21 EST ,
--- NOTE | 2023-07-21 15:35 | ED.VIS.GI ---
HPI HPI - GI History of Present Illness Chief Complaint: Flank Pain Narrative Narrative: 68-year-old female past medical history of hypertension, hyperlipidemia, previous kidney stones presents with sudden onset of right flank pain that began approximately an hour or so ago. She denies any exacerbating or alleviating factors. No fever or chills, no nausea or vomiting, no dysuria or hematuria. She states she has had kidney stones in the past, but does not follow-up with urology. She states the pain usually just goes away on its own. She took Aleve prior to arrival without relief. She has had recent cholecystectomy according to her . [facility] Medical History Arrhythmia Arthritis Cataracts, both eyes Cholelithiasis with chronic cholecystitis CPAP (continuous positive airway pressure) dependence Eczema Flu vaccine need Former smoker Health care maintenance High cholesterol History of edema History of frequent headaches History of irregular heartbeat Hyperlipemia Hypertension Kidney stones Non-smoker Osteoporosis Plantar fasciitis Post-menopausal Preoperative evaluation to rule out surgical contraindication Scalp cyst Screening for intestinal cancer Seasonal allergies Sleep apnea Wears glasses Home Medications multivitamin 1 cap PO QODAY 05/07/18 [History Last Taken Unknown] ascorbate calcium (vitamin C) 500 mg tablet 1,000 mg PO QODAY 11/02/18 [History Last Taken Unknown] cholecalciferol (vitamin D3) 25 mcg (1,000 unit) capsule 5,000 unit PO DAILY 11/02/18 [History Last Taken Unknown] melatonin 10 mg capsule 10 mg PO HS PRN Sleep 12/27/20 [History Last Taken Unknown] amlodipine 10 mg-benazepril 40 mg capsule 1 cap PO QDAY High Blood Pressure #90 caps 07/03/22 [Rx Last Taken 05/01/23] omega-3 acid ethyl esters 1 gram capsule See Rx Instructions .Route .COMPLEX #30 caps 07/03/22 [Rx Last Taken Unknown] alendronate 70 mg tablet 70 mg PO QWEEK #14 tabs 06/10/23 [Rx Last Taken Unknown] rosuvastatin 20 mg tablet See Rx Instructions .Route .COMPLEX #90 tabs 07/20/23 [Rx Last Taken Unknown] oxycodone-acetaminophen 5 mg-325 mg tablet (Percocet) 1 tab PO Q6H PRN pain 3 days #12 tabs 07/21/23 [Rx Last Taken Unknown] tamsulosin 0.4 mg capsule (Flomax) 0.4 mg PO QHS #10 caps 07/21/23 [Rx Last Taken Unknown] Allergy/AdvReac Type Severity Reaction Status Date / Time lactose AdvReac Nausea/Vom/ Verified 07/21/23 15:22 Diarrhea Family History Mother Hypertension High cholesterol Father Asthma High cholesterol Hypertension Sister Diabetes Surgical History History of colonoscopy history of gallbladder sugery History of laparoscopy History of salpingectomy Hx of bilateral cataract extraction Social History Smoking Status: Former smoker how long ago did patient quit smokin, 1p/day second hand exposure: Yes alcohol intake: never what type of physical activity do you participate in: aerobics and weight training frequency: daily ROS ROS ED ROS Narrative Constitutional: No fever, no chills. HEENT: No sore throat. No neck pain. No loss of vision. No rhinorrhea. Cardiovascular: No chest pain. No palpitations. No pedal edema. Respiratory: No cough, no shortness of breath. Abdominal: No abdominal pain. No nausea. No vomiting. Genitourinary: No dysuria. No hematuria. Positive right flank pain. Musculoskeletal: No myalgias. No arthralgias. Neurologic: No headaches. No dizziness. No lightheadedness. Skin: No rash. No change in color. Psychiatric: No depression. No anxiety. EXAM Physical Exam Narrative Exam Narrative: Afebrile. Vital signs noted. Patient appears uncomfortable, cannot sit still. HEENT: Normocephalic. Atraumatic. PERRL, EOMI. Neck soft and supple. No point tenderness or step off. Cardiovascular: Regular rate and rhythm. No murmurs, rubs, or gallops appreciated. Respiratory: No tachypnea. Lungs clear to auscultation bilaterally. Gastrointestinal: Abdomen soft, nontender, with normoactive bowel sounds. No rebound or guarding. Neurological: Awake. Alert. Nonfocal, nonlateralizing. Skin: No rash. Normal color. No pallor. Musculoskeletal: No pedal edema. Full range of motion extremities. Const Vital Signs: 07/21/23 15:22 Temperature 96.4 F L Temperature Source Temporal Pulse Rate 79 Respiratory Rate 14 Blood Pressure 131/79 H Blood Pressure Mean 96 Pulse Ox 99 Oxygen Delivery Method Room Air MDM MDM MDM Narrative Medical decision making narrative: Given her history and physical, the differential is ureterolithiasis versus pyelonephritis versus colitis. Her history and physical is not really consistent with pyelonephritis that she is not having dysuria, and she is not really having problems with bowel movements. This was a sudden onset is more than likely consistent with ureteral colic. She was administered morphine and ondansetron for analgesia. I do feel CT imaging is indicated. Urinalysis, CBC, and BMP were checked. In review of her laboratory work, her white count is 4.3 but she has a chronic neutropenia, hemoglobin is normal at 13.3 with hematocrit 40.9, platelet count normal at 239. Glucose is appropriately elevated at 112 with a normal anion gap/low at 4. BUN normal at 12 with creatinine 0.9. Urinalysis is negative for infection but there is occult blood with 50-100 RBCs. I do not feel antibiotics are indicated. I reviewed the CT report of the abdomen and pelvis and there is a 3.5 mm distal ureteral stone causing hydronephrosis on the right. At this point in time, she is able to ambulate back and forth to the bathroom. She will be given 1 additional dose of morphine prior to discharge. I wrote her prescriptions for Percocet and Flomax and she was told of the risk of dizziness and lightheadedness with Flomax, and with nausea and vomiting, constipation and drowsiness and addiction with the use of narcotic pain medication. She acknowledges an understanding. At this point in time, I feel she can be discharged to follow-up with urology as an outpatient. Return instructions to the emergency department were reviewed. Disposition is discharged home in stable condition. History & Record Review Discussion w/independent historian: Patient and Family (Spouse) Additional record(s) reviewed:: Prior labs Lab Data Attestation: I reviewed the patient's lab results. Labs: Laboratory Results - last 24 hr 07/21/23 07/21/23 15:40 16:26 WBC 4.3 L RBC 4.42 Hgb 13.3 Hct 40.9 MCV 92.5 MCH 30.1 MCHC 32.5 RDW Std Deviation 45.2 H RDW Coeff of Samy 13.3 Plt Count 237 MPV 9.9 Immature Gran % (Auto) 0.000 Neut % (Auto) 43.6 L Lymph % (Auto) 46.1 H [place] % (Auto) 8.2 Eos % (Auto) 1.4 Baso % (Auto) 0.7 Absolute Neuts (auto) 1.9 L Absolute Lymphs (auto) 1.96 Nucleated RBC % 0 Sodium 141 Potassium 3.8 Chloride 111 H Carbon Dioxide 26.0 Anion Gap 4 L BUN 12 Creatinine 0.91 Estim Creat Clear Calc 55.54 Est GFR (MDRD) Af Amer 79 Est GFR (MDRD) Non-Af 65 BUN/Creatinine Ratio 13.2 Glucose 112 H Calcium 10.0 Urine Color Yellow Urine Clarity Sl. Cloudy Urine pH 7.0 Ur Specific [place] 1.010 Urine Protein 15 H Urine Glucose (UA) Normal Urine Ketones Negative Urine Occult Blood 250 H Urine Nitrite Negative Urine Bilirubin Negative Urine Urobilinogen Normal Ur Leukocyte Esterase Negative Urine RBC 50-100 SEEN Urine WBC 0-5 SEEN Ur Squamous Epith Cells 0-5 SEEN Urine Bacteria RARE Urine Mucus 0 SEEN Radiography Diagnostic Testing: Clinical Impression(s) from Imaging Studies Abdomen/Pelvis CT 07/21/23 15:34 IMPRESSION: There is right-sided hydronephrosis and hydroureter with periureteral inflammatory stranding. Findings due to a 3.5 mm stone in the distal right ureter No free intraperitoneal fluid, air, or suspicious adenopathy. Normal appendix visualized Parapelvic left renal cysts, no specific follow-up needed. Uterus is present, the endometrium cannot be accurately evaluated with CT Electronically Signed: Harlan Becker MD at 16:21 EST Reading Location ID and State: [facility] / [place] , Service support , Discharge Plan Triage Chief Complaint: Flank Pain ED Provider: Roderick Lopes Dx/Rx/DC Orders Clinical Impression: Hydronephrosis, Ureterolithiasis, Right flank pain Instructions: ED Kidney Stone with Pain Prescriptions: New oxycodone-acetaminophen [Percocet] 5-325 mg tablet 1 tab PO Q6H PRN (Reason: pain) 3 Days Qty: 12 0RF tamsulosin [Flomax] 0.4 mg capsule 0.4 mg PO QHS Qty: 10 0RF No Action multivitamin capsule capsule 1 cap PO QODAY ascorbate calcium (vitamin C) 500 mg tablet 1,000 mg PO QODAY cholecalciferol (vitamin D3) 1,000 unit capsule 1,000 unit capsule 5,000 unit PO DAILY melatonin 10 mg capsule 10 mg PO HS PRN (Reason: Sleep) alendronate 70 mg tablet 70 mg PO QWEEK Qty: 14 1RF omega-3 acid ethyl esters 1 gram capsule See Rx Instructions .ROUTE .COMPLEX Qty: 30 11RF Dose Instruction: TAKE 1 CAPSULE BY MOUTH EVERY DAY ADMINISTER WITH FOOD (MEAL OR SNACK) Rx Instructions: TAKE 1 CAPSULE BY MOUTH EVERY DAY ADMINISTER WITH FOOD (MEAL OR SNACK) amlodipine-benazepril 10-40 mg capsule 1 cap PO QDAY Qty: 90 3RF rosuvastatin 20 mg tablet See Rx Instructions .ROUTE .COMPLEX Qty: 90 3RF Dose Instruction: TAKE 1 TABLET BY MOUTH AT BEDTIME FOR CHOLESTEROL Rx Instructions: TAKE 1 TABLET BY MOUTH AT BEDTIME FOR CHOLESTEROL Primary Care Provider: Aarti Huang Referrals: Aarti Huang MD [Primary Care Provider] - Edda Mckinney MD [Med Staff - Active Staff] - 3-5 Days Activity Restrictions/Additional Instructions: Return with fever, intractable pain, new or worsening symptoms. Follow-up with urology in the next 3 to 5 days if possible. Disposition Disposition: Home, Self Care
[2023-07-21] MEDS: Ondansetron 4 MG/2 ML Vial IV (15:47)
[2023-07-21] MEDS: Morphine 4 MG/ML Syringe IV ×2 (15:47→17:04)
[2023-07-21 16:03] LABS: Absolute Lymphocyte Count 1.96 X10^3/uL (0.83-4.51); Absolute Neutrophil Count 1.9 X10^3/uL (2.0-7.7); Basophil# 0.03 X10^3/uL; Basophil% 0.7 % (0-1); Eosinophil# 0.06 X10^3/uL; Eosinophils% 1.4 % (0-5); Hematocrit 40.9 % (37-47); Hemoglobin 13.3 g/dL (12.0-15.0); Lymphocyte # 1.96 X10^3/ul (0.83-4.51); Lymphocyte % 46.1 % (19-41); Mean Corp Hgb Conc 32.5 g/dL (32-36); Mean Corpuscular Hgb 30.1 pg (27.0-32.0); Mean Corpuscular Volume 92.5 fL (81-99); Mean Platelet Vol. 9.9 fl (6.2-12.0); Monocyte# 0.35 X10^3/uL; Monocyte% 8.2 % (0-10); NRBC Flagged by Analyzer 0 % (0-5); Neutrophil # 1.85 X10^3/uL (2.7-7.7); Neutrophil % 43.6 % (47-70); Platelet Count 237 K/mm3 (150-450); RBC Distribution Width CV 13.3 % (11.6-14.6); RBC Distribution Width SD 45.2 fl (35.1-43.9); Red Blood Count 4.42 M/mm3 (4.2-5.4); White Blood Count 4.3 K/mm3 (4.4-11.0)
[2023-07-21 16:17] LABS: Anion Gap 4 (5-15); BUN 12 mg/dL (7-18); BUN/Creat Ratio 13.2 RATIO (10-20); Chloride 111 mmol/L (98-107); Creatinine, Serum 0.91 mg/dL (0.55-1.02); EST Glomerular Filtration Rate 65 mL/min (>60); Est Glom Filt Rate - Afr Amer 79 mL/min (>60); Estimated Creatinine Clearance 55.54 ml/min; Glucose 112 mg/dL (74-106); Potassium 3.8 mmol/L (3.5-5.1); Sodium Level 141 mmol/L (136-145)
[2023-07-21 16:22] VITALS: RESP 18
[2023-07-21 16:35] LABS: Mucous, Urine 0 SEEN /hpf (<or=2+)
[2023-07-21 16:39] LABS: Color, Urine Yellow (Yellow); Glucose, Dipstick Normal (Normal); Ketone-Dipstick Negative (Negative); Leukocyte Esterase-Dipstick Negative /ul (Negative); Nitrite-Dipstick Negative (Negative); Occult Blood-Urine 250 /ul (Negative); Protein-Dipstick 15 mg/dl (Negative); Urine Bilirubin Dipstick Negative (Negative); Urine Clarity Sl. Cloudy (Clear); Urine Urobilinogen Normal (Normal)
[2023-07-21 16:49] LABS: Bacteria RARE /hpf (None Seen)
[2023-07-21 16:50] LABS: Red Blood Cells-Urine 50-100 SEEN /hpf (0-5); Squamous Epithelial Cells - UA 0-5 SEEN /hpf (5-10); White Blood Cells 0-5 SEEN /hpf (0-5)
== END 2023-07-21 17:17 | disposition home or self-care (01) ==
PROVIDERS: Emergency Provider Emergency Medicine; PCP Internal Medicine; Visit Provider Emergency Medicine
DX: N13.2 Hydronephrosis with renal and ureteral calculous obstruction (principal); I10 Essential (primary) hypertension; Z90.49 Acquired absence of other specified parts of digestive tract; Z87.891 Personal history of nicotine dependence; R10.9 Unspecified abdominal pain; E78.00 Pure hypercholesterolemia, unspecified; Z79.899 Other long term (current) drug therapy; M81.0 Age-related osteoporosis without current pathological fracture
CPT/HCPCS: 74176; 80048; 81001; 85025; 96374; 96375; 96376; 99283; A4216; J2405

== ENCOUNTER → 2023-10-28 | Outpatient (CLI) | payer MEDICARE, SELFPAY ==
[2023-10-28 11:14] LABS: Mucous, Urine 0 SEEN /hpf (<or=2+); Red Blood Cells-Urine 0 SEEN /hpf (0-5)
[2023-10-28 12:28] LABS: Anion Gap 5 (5-15); BUN 11 mg/dL (7-18); BUN/Creat Ratio 14.6 RATIO (10-20); Calcium,Total 9.3 mg/dL (8.5-10.1); Chloride 107 mmol/L (98-107); Creatinine, Serum 0.76 mg/dL (0.55-1.02); EST Glomerular Filtration Rate 80 mL/min (>60); Est Glom Filt Rate - Afr Amer 97 mL/min (>60); Glucose 104 mg/dL (74-106); Potassium 3.8 mmol/L (3.5-5.1); Sodium Level 140 mmol/L (136-145)
[2023-10-28 15:30] LABS: Color, Urine Yellow (Yellow); Glucose, Dipstick Normal (Normal); Ketone-Dipstick 5 mg/dl (Negative); Leukocyte Esterase-Dipstick 25 /ul (Negative); Nitrite-Dipstick Negative (Negative); Occult Blood-Urine Negative /ul (Negative); Protein-Dipstick 30 mg/dl (Negative); Urine Clarity Clear (Clear); Urine Urobilinogen Normal (Normal)
[2023-10-28 16:04] LABS: Urine Bilirubin Dipstick 1 mg/dL (Negative)
[2023-10-28 16:15] LABS: Bacteria 2+ /hpf (None Seen); Calcium Oxalate Crystals Ur 1+ /hpf (<or=2+); Squamous Epithelial Cells - UA 5-10 SEEN /hpf (5-10); White Blood Cells 0-5 SEEN /hpf (0-5)
== END | disposition home or self-care (01) ==
LOC: BIMLAB 11:13
PROVIDERS: PCP Internal Medicine; Visit Provider Internal Medicine
DX: I10 Essential (primary) hypertension (principal); N20.0 Calculus of kidney
CPT/HCPCS: 36415; 80048; 81001

== ENCOUNTER → 2024-05-04 | Outpatient (CLI) | payer MEDICARE, SELFPAY ==
[2024-05-04 12:09] LABS: Absolute Lymphocyte Count 1.35 X10^3/uL (0.83-4.51); Absolute Neutrophil Count 1.6 X10^3/uL (2.0-7.7); Basophil# 0.03 X10^3/uL; Basophil% 0.9 % (0-1); Eosinophil# 0.13 X10^3/uL; Eosinophils% 3.8 % (0-5); Hematocrit 39.4 % (37-47); Hemoglobin 12.7 g/dL (12.0-15.0); Lymphocyte # 1.35 X10^3/ul (0.83-4.51); Lymphocyte % 39.5 % (19-41); Mean Corp Hgb Conc 32.2 g/dL (32-36); Mean Corpuscular Hgb 30.2 pg (27.0-32.0); Mean Corpuscular Volume 93.8 fL (81-99); Mean Platelet Vol. 9.9 fl (6.2-12.0); Monocyte% 8.8 % (0-10); NRBC Flagged by Analyzer 0 % (0-5); Neutrophil % 46.7 % (47-70); Platelet Count 239 K/mm3 (150-450); RBC Distribution Width CV 13.3 % (11.6-14.6); RBC Distribution Width SD 45.5 fl (35.1-43.9); White Blood Count 3.4 K/mm3 (4.4-11.0)
[2024-05-04 12:55] LABS: AST(SGOT) 15 U/L (15-37); Alanine Aminotransfer ALT/SGPT 23 U/L (13-56); Albumin, Serum 3.8 g/dL (3.2-5.0); Alkaline Phosphatase 56 U/L (45-117); Anion Gap 5 (5-15); BUN 10 mg/dL (7-18); BUN/Creat Ratio 11.4 RATIO (10-20); Calcium,Total 9.6 mg/dL (8.5-10.1); Chloride 107 mmol/L (98-107); Cholesterol 147 mg/dL (200); Creatinine, Serum 0.87 mg/dL (0.55-1.02); EST Glomerular Filtration Rate 68 mL/min (>60); Est Glom Filt Rate - Afr Amer 82 mL/min (>60); Globulin 3.9 g/dL (2.2-4.2); Glucose 106 mg/dL (74-106); High Density Lipoprotein 77 mg/dL; Potassium 4.2 mmol/L (3.5-5.1); Protein, Total 7.7 g/dL (6.4-8.2); Sodium Level 139 mmol/L (136-145); Triglycerides 99 mg/dL; Very Low Density Lipoprotein 20 mg/dL (5-40)
== END | disposition home or self-care (01) ==
LOC: BIMLAB 11:09
PROVIDERS: PCP Internal Medicine; Referring Provider Internal Medicine; Visit Provider Internal Medicine
DX: E78.5 Hyperlipidemia, unspecified (principal); I10 Essential (primary) hypertension
CPT/HCPCS: 36415; 80053; 80061; 85025

== ENCOUNTER → 2024-07-29 | Outpatient (CLI) | payer MEDICARE, SELFPAY ==
--- NOTE | 2024-07-29 10:47 | BI_ITS ---
PROCEDURE: SCRN MAMM (CAD)W/RODOLFO BILAT REASON FOR EXAM: F, Age 69 y/o, routine annual mammogram. TECHNIQUE: Bilateral screening digital breast tomosynthesis with 2D and 3D images. Computer aided detection. COMPARISON: Prior exam(s) dating back to June 02, 2023.. FINDINGS: There are scattered areas of fibroglandular density. Stable benign-appearing bilateral axillary lymph nodes. No suspicious masses, areas of developing architectural distortion, or suspicious calcifications. BI/SCRN MAMM (CAD)W/RODOLFO BILAT IMPRESSION: BI-RADS 2: BENIGN. RECOMMEND ANNUAL MAMMOGRAPHIC SCREENING. Follow-up code: Routine Follow-up The patient will be notified of the results by letter. Reading Location: [place] [id number]
== END | disposition home or self-care (01) ==
LOC: OPBI 10:47
PROVIDERS: PCP Internal Medicine; Referring Provider Internal Medicine; Visit Provider Internal Medicine
DX: Z12.31 Encounter for screening mammogram for malignant neoplasm of breast (principal)
CPT/HCPCS: 77063; 77067

== ENCOUNTER → 2025-04-25 | Outpatient (CLI) | payer MEDICARE, SELFPAY | END | disposition home or self-care (01) | PROVIDERS: PCP Internal Medicine; Referring Provider Internal Medicine; Visit Provider Internal Medicine | DX: Z00.00 Encounter for general adult medical examination without abnormal findings (principal) ==

== ENCOUNTER → 2025-06-06 | Outpatient (CLI) | payer MEDICARE, SELFPAY ==
--- NOTE | 2025-06-06 10:35 | BD_ITS ---
PROCEDURE: DEXA BONE DENSITY STUDY 06/06/2025 REASON FOR EXAM: OSTEOPOROSIS F, age 70 y/o . Postmenopausal. TECHNIQUE: Procedure Code: BDDBD Modality: DX Procedure: DEXA BONE DENSITY STUDY COMPARISON: June 02, 2023. FINDINGS: BMD and T-SCORES Lumbar spine: 0.903 g/cm2, T-score -2.8 Levels: L1 through L4 Change from prior: Improvement of 6.9%. Left femoral neck: 0.653 g/cm2, T-score -2.1 Femoral neck comparison data not recommended for monitoring change. Left total hip: 0.827 g/cm2, T-score -1.3 Change from prior: Improvement of 3.6%. Right femoral neck: 0.674 g/cm2, T-score -1.9 Femoral neck comparison data not recommended for monitoring change. Right total hip: 0.823 g/cm2, T-score -1.3 Change from prior: Improvement of 6.6%. The World Health Organization has defined the following categories based on bone density: Normal bone density: T-score equal to or greater than -1.0 Osteopenia: T-score between -1.0 and -2.5 Osteoporosis: T-score equal to or less than -2.5 FRAX (or Comparable) Fracture Risk Assessment: 10 Year Probability of Fracture: Major Osteoporotic Fracture: 4.8% Hip Fracture: 0.8% (Note: FRAX is not to be reported in setting of normal range bone density, osteoporosis on DEXA, known history of osteoporosis, prior osteoporotic hip or vertebral fracture, or for any patient undergoing pharmacological treatment for bone loss.) The National Osteoporosis Foundation (NOF) recommends pharmacological treatment for patients with a FRAX 10-year risk of 3% or higher for a hip fracture, or 20% or higher for a major osteoporotic fracture, to prevent osteoporosis and reduce fracture risk. The patient does meet the pharmacological treatment recommendations for prevention of osteoporosis. BD/Dexa Bone Density Study IMPRESSION: OSTEOPOROSIS. Recommend follow-up as clinically warranted. Reading Location: [place] [id number]
== END | disposition home or self-care (01) ==
PROVIDERS: PCP Internal Medicine; Referring Provider Internal Medicine; Visit Provider Internal Medicine
DX: M81.0 Age-related osteoporosis without current pathological fracture (principal)
CPT/HCPCS: 77080